=== PATIENT | male | born 1935 | race Caucasian/White ===

== ENCOUNTER 2024-10-01 23:36 | Inpatient (IN) | payer OTHER ==
[~2024-10-01] VITALS: Ht 170.2 cm; Wt 86.6 kg
[2024-10-02] VITALS (12 sets, daily range): BP systolic 103–117; BP diastolic 64–79; PULSE 98–114; RESP 16–22; TEMP 97.6–98.2; O2SAT 90–100
--- NOTE | 2024-10-02 00:12 | ED.PDOC ---
SOB-HPI HPI Comments 88 year old male brought in by EMS presents to the ED with a chief complaint of shortness of breath onset yesterday. Per EMS, patient was sitting on his bed, leaning forward, with O2 sat of 79-83% on his baseline 6L O2 with audible wheezes. Patient was given a breathing treatment, O2 improved to 94% on 6L O2, tachycardiac with HR of 114. Patient states he was experiencing cough with phlegm. PMHx HTN, HLD, pulmonary fibrosis. Denies chest pain, runny nose, congestion, dizziness, generalized weakness, headache, nausea, vomiting, diarrhea, fevers, chills. No other symptoms or modifying factors present at this time. Chief Complaint: Shortness of Breath Time Seen by MD: 23:47 Reviewed notes: Medications, Allergies Information Source: Patient, Emergency Med Personnel Mode of Arrival: EMS Severity: Moderate Timing: Hours Duration: Since onset Context: At Rest PE Risk Factors: None History of: None Prehospital treatment: Breathing Tx, Oxygen Modifying Factors: Nothing Associated Signs and Symptoms: Cough Radiation: No Radiation If cough with SOB: Productive Vital Signs Vital Signs Date Time Temp Pulse Resp B/P (MAP) Pulse Ox O2 Delivery O2 Flow Rate FiO2 10/02/24 06:50 119 17 108/72 (84) 97 10/02/24 02:55 97.9 97.9 10/02/24 00:55 Nasal Cannula* 4 36 Physical Exam General: Awake, alert and oriented. No acute distress. Skin: Skin in warm, dry and intact. Appropriate color for ethnicity. HEENT: The head is normocephalic and atraumatic. Conjunctivae are clear without exudates or hemorrhage. Sclera is non-icteric. EOM are intact. No signs of nystagmus. Eyelids are normal in appearance without swelling or lesions. Oral mucosa is pink and moist Neck: The neck is supple with normal range of motion. No JVD. Cardiac: Heart rate and rhythm are normal. No murmurs, gallops, or rubs are auscultated. Respiratory: No signs of respiratory distress. Tachypnea, bilateral rhonchi Abdominal: Abdomen is soft, non-tender without distention. Bowel sounds are present and normoactive in all four quadrants. Extremities: Upper and lower extremities are atraumatic in appearance without deformity or edema. Neurological: The patient is awake, alert and oriented to person, place, and ti me with normal speech. Speech is clear. There is no facial asymmetry. Psychiatric: Appropriate mood and affect. Good judgement and insight. No visual or auditory hallucinations. Review of Systems: REVIEW OF SYSTEMS: No fever, no chills, or fatigue HEENT: No sore throat, no earache, no congestion, no neck pain. Cardiac: Positive chest pain. No palpitations. Lungs: Positive shortness of breath, positive cough. GI: No nausea, no vomiting, no diarrhea, no constipation, no abdominal pain : No dysuria, frequency, or urgency. No hematuria. Musculoskeletal: No new joint pain , no joint swelling, no extremity edema. Skin: No rash, no itching. Neuro: No headache, no dizziness, no weakness Past Medical History PAST MEDICAL HISTORY: High Lipids, HTN Surgical History: Denies all surgeries Family History Family History: Reviewed,noncontributory to illness, No family hx of Cancer, No family hx of DM, No family hx of Heart ailyn, No family hx of HTN, No family hx ofKidney ailyn, No family hx of Liver ailyn, No family hx of Lung ailyn, No family hx of Stroke Social History Smoker: Non-Smoker Alcohol: Denies ETOH Use Drugs: Denies Drug Use Lives In: Home Was a procedure done? Was a procedure done?: No Differential Dx Differential Diagnosis: Bronchitis, Cardiogenic Shock, CHF, COPD, Hyponatremia, Myocardial infarction, Pneumonia, Pneumothorax, Pulmonary Embolism, Respiratory Distress, Peritonsillar Abscess, Peritonsillar Cellulitis, URI X-Ray, Labs, Meds, VS Vital Signs Date Time Temp Pulse Resp B/P (MAP) Pulse Ox O2 Delivery O2 Flow Rate FiO2 10/02/24 06:50 119 17 108/72 (84) 97 10/02/24 04:55 116 18 102/60 (74) 94 10/02/24 04:00 113 10/02/24 02:55 97.9 111 18 100/58 (72) 94 97.9 10/02/24 01:00 126 10/02/24 00:55 114 18 94 Nasal Cannula* 4 36 10/02/24 00:55 98.1 114 15 107/73 (84) 97 98.1 10/01/24 23:50 98.3 114 20 108/72 (84) 96 10/01/24 23:38 119 Lab Test 10/02/24 06:33 10/02/24 02:57 10/02/24 01:46 10/02/24 00:55 Range/Units POC Glucose 114 H 70-106 mg/dl Lactic Acid Level 1.7 0.4-2.0 mmol/L Troponin I High Sensitivity < 3 L </=54 ng/L Influenza Type A Antigen Negative Negative Influenza Type B Antigen Negative Negative SARS-CoV-2 Antigen (Rapid) Negative NEGATIVE Test 10/02/24 00:51 10/02/24 00:50 Range/Units Blood Gas Specimen Type Arterial Blood Gas Sample Site Right radial Blood Gas Patient Temperature 37.0 Arterial Blood Date Drawn [id number] Arterial Blood pH 7.441 7.350-7.450 Arterial Blood Partial Pressure CO2 36.2 35.0-48.0 mmHg Arterial Blood Partial Pressure O2 84.2 83.0-108.0 mmHg Arterial Blood HCO3 24.1 21.0-28.0 mmol/L Arterial Blood Oxygen Saturation 96.4 94.0-98.0 % Arterial Blood Base Excess 0.3 -2.0-3.0 mmol/L Arterial Blood Oxyhemoglobin 94.8 94.0-98.0 % Arterial Blood Carboxyhemoglobin 1.3 0.5-1.5 % Arterial Blood Methemoglobin 0.4 0.0-1.5 % Phu Test Modified Blood Gas Total Hemoglobin 13.30 L 13.5-17.5 g/dL Blood Gas Liter Flow 4.00 Blood Gas Modality Nasal cannula FiO2 % 36.0 White Blood Count 9.7 4.4-10.8 10^3/uL Red Blood Count 3.71 L 4.5-5.90 10^6/uL Hemoglobin 13.3 L 13.5-17.5 g/dL Hematocrit 39.6 L 41.0-53.0 % Mean Corpuscular Volume 106.7 H 80.0-100.0 fL Mean Corpuscular Hemoglobin 35.8 H 28.0-32.0 pg Mean Corpuscular Hemoglobin Concent 33.6 32.0-36.0 g/dL Red Cell Distribution Width 13.9 11.8-14.3 % Platelet Count 195 140-450 10^3/uL Mean Platelet Volume 6.9 6.9-10.8 fL Neutrophils (%) (Auto) 83.0 H 37.0-80.0 % Lymphocytes (%) (Auto) 8.5 L 10.0-50.0 % Monocytes (%) (Auto) 7.6 0.0-12.0 % Eosinophils (%) (Auto) 0.8 0.0-7.0 % Basophils (%) (Auto) 0.1 0.0-2.0 % Neutrophils # (Auto) 8.1 1.6-8.6 10 ^3/uL Lymphocytes # (Auto) 0.8 0.4-5.4 10 ^3/uL Monocytes # (Auto) 0.7 0-1.3 10 ^3/uL Eosinophils # (Auto) 0.1 0-0.8 10 ^3/uL Basophils # (Auto) 0 0-0.2 10 ^3/uL Nucleated Red Blood Cells 0.1 % D-Dimer, Quantitative 8.75 H 0.0-0.49 mg/L FEU Sodium Level 136 136-145 mmol/L Potassium Level 4.3 3.5-5.1 mmol/L Chloride Level 101 98-107 mmol/L Carbon Dioxide Level 27 20-31 mmol/L Anion Gap 8 5-15 Blood Urea Nitrogen 8 L 9-23 mg/dL Creatinine 0.71 0.700-1.30 mg/dL Glomerular Filtration Rate Calc 89 >90 mL/min BUN/Creatinine Ratio 11.3 10.0-20.0 Serum Glucose 141 H 74-106 mg/dL Lactic Acid Level 4.1 *H 0.4-2.0 mmol/L Calcium Level 8.2 L 8.7-10.4 mg/dL Total Bilirubin 0.8 0.2-1.0 mg/dL Aspartate Amino Transferase (AST) 47 H 13-40 U/L Alanine Aminotransferase (ALT) 28 7-40 U/L Alkaline Phosphatase 190 H 46-116 U/L Troponin I High Sensitivity < 3 L </=54 ng/L B-Type Natriuretic Peptide 73.52 0-100 pg/mL Total Protein 7.0 5.7-8.2 g/dL Albumin 2.4 L 3.2-4.8 g/dL Current Medications Medications (Trade) Dose Ordered Sig/Lizz Route Start Time Stop Time Status Last Admin Sodium Chloride 1,000 ml @ 1,000 mls/hr Q1H ONCE IV 10/02/24 03:00 10/02/24 03:59 DC 10/02/24 03:00 Sodium Chloride 1,000 ml @ 130 mls/hr Q7H42M ONCE IV 10/02/24 03:00 10/02/24 10:41 10/02/24 03:00 Sodium Chloride 1,000 ml @ 1,000 mls/hr Q1H ONCE IV 10/02/24 03:00 10/02/24 03:59 DC 10/02/24 03:00 Ceftriaxone Sodium 50 ml @ 100 mls/hr ONCE ONCE IV 10/02/24 03:00 10/02/24 03:29 DC 10/02/24 03:00 Azithromycin 250 ml @ 125 mls/hr ONCE ONCE IV 10/02/24 03:00 10/02/24 04:59 DC 10/02/24 03:00 [place] [id number] Ph: [phone] DIAGNOSTIC IMAGING Diagnostic Imaging Report : [id number] Signed PATIENT: MAHNAZ JIMENEZ ACCT: [id number] UNIT: [id number] : 1935 LOC: ER ROOM / BED: / AGE / SEX: 88 / M ADM STATUS: REG ER SERVICE ORDERING PHYSICIAN: PACO AGUIRRE MD PROCEDURE(s): CXR1 - CHEST XRAY 1 VIEW REASON: Shortness of breath ORDER NUMBER(s): [id number], ACCESSION NUMBER(s): [id number] CHEST RADIOGRAPH Indication: Shortness of breath Technique: Single frontal view of the chest was obtained Comparison: None Findings/impression: Low lung volumes with bronchovascular crowding. Difficult to exclude superimposed infection. No pneumothorax. No pleural effusions ATED BY: JOSUÉ JUSTIN DO DICTATED DATE/TIME: 10/02/2499 SIGNED BY: JOSUÉ JUSTIN DO SIGNED DATE/TIME: 10/02/2499 CC: X-Ray, Labs, Meds, VS Comment Addendum by Dr. Bangura: CTA read: 1. No pulmonary embolism is identified. Some of the distal pulmonary arteries cannot be evaluated due to suboptimal opacification. 2. The ascending thoracic aorta is ectatic measuring 4.5 cm in maximum d iameter. 3. 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 4. COPD with scattered areas of ground-glass attenuation, partial consolidation and bilateral pleural effusions. Superimposed pneumonia can not be excluded. Dx: aortic anerysm, COPD, bilateral pleural effusions, SOB, Patient cleared by [facility] for admission [id number] Time of 1ST Reevaluation: 00:17 Reevaluation 1ST: Unchanged Patient Education/Counseling: Diagnosis, Treatment, Prognosis Family Education/Counseling: No Family Present Departure 1 Departure Time of Disposition: 02:57 Impression: Primary Impression: Suspected sepsis Additional Impressions: Aortic aneurysm Hypoxia Dyspnea Disposition: 09 ADMITTED INPATIENT Admit to: [facility] Condition: Stable Comments 88-year-old male who presents to the emergency department with shortness of breath. Suspected sepsis given leukocytosis, tachycardia, elevated lactic acid. Antibiotics and IV fluids initiated. D-dimer was also elevated, CT angiogram pending. Patient admitted for further treatment, evaluation and monitoring. Discussed with Dr. Valentin at [facility] [facility] we will transfer to [facility]. Extensive evaluation was performed in attempt to identify or rule out: (See differential diagnosis section) The following tests were ordered, and results were reviewed by me and discussed with the patient and family at bedside: (See diagnostic results section) The following test were independently interpreted by me: EKG I reviewed and agreed with the following test results read by other providers: Chest x-ray I reviewed the following notes from the pt's past medical encounters: N/A Additional information was gathered from interviewing the following independent historians: Patient's daughter at bedside Discussion of management or test interpretation with external physician/other qualified health post acute care registered nurse: N/A Addressed an acute or chronic illness that poses a threat to life or bodily function: Sepsis, pneumonia, sinus tachycardia Decision regarding hospitalization or escalation of hospital level of care: Risk and benefits of admission for further treatment of patient's condition was considered. Due to patient's current clinical condition, high risk of decline and poor outcome if discharged and need for further inpatient management and monitoring, patient will be admitted to the hospital. Drug therapy requiring intensive monitoring for toxicity: N/A Parenteral controlled substances: N/A Decision regarding elective major surgery with identified patient or procedure risk factors: N/A Decision regarding emergency major surgery: N/A Decision not to resuscitate or to de-escalate care because of poor prognosis: N/A Diagnosis or treatment significantly limited by social determinants of health: N/A Critical Care Note Critical Care Time?: Yes (1 hr-critical care time only) Stability Stability form required: No Heart Score Heart Score: Heart Score Response (Comments) Value History N/A 0 EKG N/A 0 Age N/A 0 Risk Factors N/A 0 Troponin N/A 0 Total 0 I personally scribed for PACO AGUIRRE MD ([email or web address]) on 10/02/24 at 00:12. Electronically submitted by Marlene Bess ([email or web address]). I personally scribed for PACO AGUIRRE MD ([email or web address]) on 10/02/24 at 01:18. Electronically submitted by Marlene Bess ([email or web address]). PACO AGUIRRE MD Oct 02, 2024 00:12 LARRY BANGURA MD Oct 02, 2024 06:42
--- NOTE | 2024-10-02 01:03 | DVH ---
CHEST RADIOGRAPH Indication: Shortness of breath Technique: Single frontal view of the chest was obtained Comparison: None Findings/impression: Low lung volumes with bronchovascular crowding. Difficult to exclude superimpose d infection. No pneumothorax. No pleural effusions
[2024-10-02 01:09] LABS: Base Excess 0.3 mmol/L (-2.0-3.0)
[2024-10-02 01:10] LABS: Basophils # (auto) 0 10 ^3/uL (0-0.2); Basophils % (auto) 0.1 % (0.0-2.0); Eosinophils # (auto) 0.1 10 ^3/uL (0-0.8); Eosinophils % (auto) 0.8 % (0.0-7.0); Hematocrit 39.6 % (41.0-53.0); Hemoglobin 13.3 g/dL (13.5-17.5); Lymphocytes # (auto) 0.8 10 ^3/uL (0.4-5.4); Lymphocytes % (auto) 8.5 % (10.0-50.0); Mean Corpuscular Hemoglobin 35.8 pg (28.0-32.0); Mean Corpuscular Hgb Conc. 33.6 g/dL (32.0-36.0); Mean Corpuscular Volume 106.7 fL (80.0-100.0); Monocytes # (auto) 0.7 10 ^3/uL (0-1.3); Monocytes % (auto) 7.6 % (0.0-12.0); Neutrophils # (auto) 8.1 10 ^3/uL (1.6-8.6); Nucleated Red Blood Cells % 0.1 %; Platelet Count (auto) 195 10^3/uL (140-450); Red Blood Cells 3.71 10^6/uL (4.5-5.90); Red Cell Distribution Width 13.9 % (11.8-14.3); White Blood Cell 9.7 10^3/uL (4.4-10.8)
[2024-10-02 01:42] LABS: Lactic Acid w/Reflex 4.1 mmol/L (0.4-2.0)
[2024-10-02 01:44] LABS: Alanine Aminotransferase 28 U/L (7-40); Albumin 2.4 g/dL (3.2-4.8); Alkaline Phosphatase 190 U/L (46-116); Anion Gap 8 (5-15); Aspartate Aminotransferase 47 U/L (13-40); BUN/Creatinine Ratio 11.3 (10.0-20.0); Bilirubin, Total 0.8 mg/dL (0.2-1.0); Blood Urea Nitrogen 8 mg/dL (9-23); Calcium 8.2 mg/dL (8.7-10.4); Carbon Dioxide 27 mmol/L (20-31); Chloride 101 mmol/L (98-107); Glucose 141 mg/dL (74-106); Potassium 4.3 mmol/L (3.5-5.1); Sodium 136 mmol/L (136-145)
[2024-10-02 02:00] LABS: COVID19 ANTIGEN SOFIA FIA NEGATIVE (NEGATIVE)
[2024-10-02] MEDS: IOHEXOL 350 MG/ML 100ML IJ ONE ×2 (02:13→04:39)
[2024-10-02 02:20] LABS: Rapid Influenza A Negative (Negative); Rapid Influenza B Negative (Negative)
[2024-10-02] MEDS: AZITHROMYCIN 500MG/ 250ML 250 ML IV ONE (03:00)
[2024-10-02] MEDS: SODIUM CHLORIDE 0.9% 1,000 ML IV ONE ×3 (03:00)
[2024-10-02] MEDS: cefTRIAXone 1GM/50ML D5W 50 ML IV ONE (03:00)
--- NOTE | 2024-10-02 06:17 | DVH ---
EXAM: CT Angiography Chest With Intravenous Contrast CLINICAL INDICATION: Chest pain, shortness of breath, cough, elevated D-dimer, l TECHNIQUE: Axial computed tomographic angiography images of the chest with intravenous contrast. [facility] CT exam was performed using one or more of the following dose reduction techniques: automated exp osure control, adjustment of the mA and/or kV according to patient size, and/or use of iterative lazaro nstruction technique. MIP reconstructed images were created and reviewed. CONTRAST: COMPARISON: None FINDINGS: LIMITATIONS: Suboptimal opacification of the pulmonary arteries. PULMONARY ARTERIES: No pulmonary embolism is identified. Some of the distal pulmonary arteries can not be evaluated due to suboptimal opacification. AORTA: The ascending thoracic aorta is ectatic measuring 4.5 cm in maximum diameter. No thoracic a ortic aneurysm. LUNGS AND PLEURAL SPACES: COPD with scattered areas of ground-glass attenuation, partial consolidat ion and bilateral pleural effusions. Superimposed pneumonia can not be excluded. HEART: Unremarkable. No cardiomegaly. No significant pericardial effusion. No evidence of RV dys function. BONES/JOINTS: No acute fracture. No dislocation. SOFT TISSUES: Unremarkable. LYMPH NODES: Unremarkable. No enlarged lymph nodes. 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 OTHER FINDINGS: . IMPRESSION: 1. No pulmonary embolism is identified. Some of the distal pulmonary arteries cannot be evaluated d ue to suboptimal opacification. 2. 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 3. 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 4. COPD with scattered areas of ground-glass attenuation, partial consolidation and bilateral pleura l effusions. Superimposed pneumonia can not be excluded.
[2024-10-02 09:09] LABS: Urine Bacteria None Seen /hpf (None Seen)
[2024-10-02 09:14] LABS: Urine Blood Negative /uL (Negative); Urine Clarity Clear (Clear); Urine Color Light-Yellow (Yellow); Urine Protein, UAD Negative (Negative); Urine Specific Gravity 1.025 (1.001-1.035); Urine Squamous Epithelial Cell None Seen /hpf (<5); Urine Urobilinogen 2 mg/dL (Negative); Urine WBC 1 /HPF (0-3); Urine pH 6.5 (5.0-9.0)
[2024-10-02] MEDS ORDERED: ONDANSETRON HCL 4 MG/2 ML VIAL IV PRN (12:00)
[2024-10-02] MEDS ORDERED: HYDROcodone-ACET 5/325MG TAB PO PRN (12:00)
[2024-10-02] MEDS ORDERED: IPRATROPIUM BROM 0.5 MG/2.5ML INH SOL NEB PRN (12:00)
[2024-10-02] MEDS ORDERED: ACETAMINOPHEN 325 MG TAB PO PRN (12:00)
[2024-10-02] MEDS ORDERED: ALBUTEROL SULF 2.5 MG/0.5ML(0.5%) NEB SOLN NEB PRN (12:00)
[2024-10-02] MEDS ORDERED: DEXTROSE (50%) 50ML SYRG IV PRN (12:00)
[2024-10-02] MEDS ORDERED: TAMS0.4C39 (12:40)
[2024-10-02] MEDS ORDERED: PIRF801T (12:40)
[2024-10-02] MEDS ORDERED: ATOR10TA52 (12:40)
[2024-10-02] MEDS ORDERED: BISO5TAB44 (12:40)
[2024-10-02] MEDS ORDERED: ONDA-188 (12:40)
[2024-10-02] MEDS ORDERED: ALEN70TA74 (12:40)
[2024-10-02] MEDS ORDERED: TERB250T86 (12:40)
--- NOTE | 2024-10-02 12:57 | DVHHP2 ---
History of Present Illness Reason for Visit: SOB History of Present Illness Renzo Roy is an 88-year-old male with past medical history of COPD, ex-tobacco use, pulmonary fibrosis, hypertension, ILD, atherosclerosis, colon polyp, pulmonary nodules, vitamin-D deficiency, thyroid goiter, cataracts, aortic aneurysm, hemochromatosis, hyperlipidemia, chronic respiratory failure, osteoarthritis, liver cirrhosis, back surgery, right leg surgery, and liver bio psy who presents to the ED with shortness of breath for the last several days. Patient is oxygen dependent on 4.5 to 5 L nasal cannula continuously at home per daughter Chiqui at bedside. Patient's daughter also states that he was supposed to have an oxy walk study done at [facility] but because the depleted oxygen at home she brought him in for evaluation. Patient denies any chest pain, recent illnesses, recent trauma or injury, fever, chills, lightheadedness, weakness, dizziness, abdominal pain, nausea, vomiting, and diarrhea. Patient's daughter Chiqui also states that he has an aortic aneurysm and is being managed by his primary at [place], she states that there is no surgical intervention management at this time. She also reports that he had a paracentesis but unsure when the last one was done. Cardiovascular: HTN, hyperipidemia Pulmonary: COPD Hepatobiliary: Cirrhosis Past Medical History Pulmonary fibrosis Interstitial lung disease Thyroid goiter Vitamin-D deficiency Pulmonary nodules Atherosclerosis Colon polyp Cataracts Aortic aneurysm Hemochromatosis Chronic respiratory failure Past Surgical History: Other Past Surgical History Paracentesis, back surgery, right leg surgery, and liver biopsy Family History: Cancer, CVA, Other (Dad with lung cancer and CVA) Smoke: Quit ALCOHOL: occassional Drugs: None Lives: with Family Domestic Violence: Neg Review of Systems Respiratory: Shortness of breath Allergies: Coded Allergies: NO KNOWN ALLERGIES (Unverified , 10/02/24) Medications Current Medications Medications Dose Ordered Sig/Lizz Route Start Time Stop Time Status Last Admin Dose Admin Ceftriaxone Sodium 50 ml @ 100 mls/hr DAILY@09 IV 10/03/24 09:00 UNV Azithromycin 250 ml @ 125 mls/hr DAILY IV 10/03/24 10:00 UNV Acetaminophen/ Hydrocodone Bitart 1 tab Q4HP PRN PO 10/02/24 12:00 UNV Ondansetron HCl 4 mg Q4HP PRN IV 10/02/24 12:00 UNV Acetaminophen 650 mg Q6HP PRN PO 10/02/24 12:00 UNV Diagnostic Test (Pha) 1 strip ACHS 10/02/24 17:00 UNV Insulin Human Regular ACHS SC 10/02/24 17:00 UNV Dextrose 50 ml UD PRN IV 10/02/24 12:00 UNV Albuterol 2.5 mg Q4HWA NEB 10/02/24 14:00 UNV Albuterol 2.5 mg Q2HPRN PRN NEB 10/02/24 12:00 UNV Ipratropium [place] 0.5 mg Q4HWA NEB 10/02/24 14:00 UNV Ipratropium [place] 0.5 mg Q2HPRN PRN NEB 10/02/24 12:00 UNV Methylprednisolone Sodium Succinate 40 mg Q8HR IV 10/02/24 14:00 UNV Famotidine 20 mg DAILY IV 10/03/24 10:00 UNV Exam Vital Signs Vital Signs Date Time Temp Pulse Resp B/P (MAP) Pulse Ox O2 Delivery O2 Flow Rate FiO2 10/02/24 11:00 97.9 104 18 112/70 (84) 99 97.9 10/02/24 00:55 Nasal Cannula* 4 36 General Appearance: Alert, Oriented X3, Cooperative, mild distress HEENT: Atraumatic, PERRLA, EOMI, Mucous membr. moist/pink Respiratory: Normal air movement Cardiovascular: Normal S1, Normal S2, No murmurs Abdominal: Soft Extremities: No cyanosis, Normal pulses Neuro: Normal speech, Normal tone, Sensation intact Psych/Mental Status: Mental status NL, Mood NL Labs/Xrays Labs Test 10/02/24 09:00 10/02/24 06:33 10/02/24 02:57 10/02/24 01:46 Range/Units Urine Color Light-yellow Yellow Urine Clarity Clear Clear Urine pH 6.5 5.0-9.0 Urine Specific [place] 1.025 1.001-1.035 Urine Protein Negative Negative Urine Ketones Negative Negative Urine Blood Negative Negative /uL Urine Nitrite Negative Negative Urine Bilirubin Negative Negative Urine Urobilinogen 2 H Negative mg/dL Urine Leukocyte Esterase Negative Negative /uL Urine RBC 1 0 - 3 /hpf Urine Microscopic WBC 1 0-3 /HPF Urine Squamous Epithelial Cells None seen <5 /hpf Urine Bacteria None seen None Seen /hpf Urine Glucose Normal Normal mg/dL POC Glucose 114 H 70-106 mg/dl Lactic Acid Level 1.7 0.4-2.0 mmol/L Troponin I High Sensitivity < 3 L </=54 ng/L Test 10/02/24 00:55 10/02/24 00:51 10/02/24 00:50 Range/Units Influenza Type A Antigen Negative Negative Influenza Type B Antigen Negative Negative SARS-CoV-2 Antigen (Rapid) Negative NEGATIVE Blood Gas Specimen Type Arterial Blood Gas Sample Site Right radial Blood Gas Patient Temperature 37.0 Arterial Blood Date Drawn [id number] Arterial Blood pH 7.441 7.350-7.450 Arterial Blood Partial Pressure CO2 36.2 35.0-48.0 mmHg Arterial Blood Partial Pressure O2 84.2 83.0-108.0 mmHg Arterial Blood HCO3 24.1 21.0-28.0 mmol/L Arterial Blood Oxygen Saturation 96.4 94.0-98.0 % Arterial Blood Base Excess 0.3 -2.0-3.0 mmol/L Arterial Blood Oxyhemoglobin 94.8 94.0-98.0 % Arterial Blood Carboxyhemoglobin 1.3 0.5-1.5 % Arterial Blood Methemoglobin 0.4 0.0-1.5 % Phu Test Modified Blood Gas Total Hemoglobin 13.30 L 13.5-17.5 g/dL Blood Gas Liter Flow 4.00 Blood Gas Modality Nasal cannula FiO2 % 36.0 White Blood Count 9.7 4.4-10.8 10^3/uL Red Blood Count 3.71 L 4.5-5.90 10^6/uL Hemoglobin 13.3 L 13.5-17.5 g/dL Hematocrit 39.6 L 41.0-53.0 % Mean Corpuscular Volume 106.7 H 80.0-100.0 fL Mean Corpuscular Hemoglobin 35.8 H 28.0-32.0 pg Mean Corpuscular Hemoglobin Concent 33.6 32.0-36.0 g/dL Red Cell Distribution Width 13.9 11.8-14.3 % Platelet Count 195 140-450 10^3/uL Mean Platelet Volume 6.9 6.9-10.8 fL Neutrophils (%) (Auto) 83.0 H 37.0-80.0 % Lymphocytes (%) (Auto) 8.5 L 10.0-50.0 % Monocytes (%) (Auto) 7.6 0.0-12.0 % Eosinophils (%) (Auto) 0.8 0.0-7.0 % Basophils (%) (Auto) 0.1 0.0-2.0 % Neutrophils # (Auto) 8.1 1.6-8.6 10 ^3/uL Lymphocytes # (Auto) 0.8 0.4-5.4 10 ^3/uL Monocytes # (Auto) 0.7 0-1.3 10 ^3/uL Eosinophils # (Auto) 0.1 0-0.8 10 ^3/uL Basophils # (Auto) 0 0-0.2 10 ^3/uL Nucleated Red Blood Cells 0.1 % D-Dimer, Quantitative 8.75 H 0.0-0.49 mg/L FEU Sodium Level 136 136-145 mmol/L Potassium Level 4.3 3.5-5.1 mmol/L Chloride Level 101 98-107 mmol/L Carbon Dioxide Level 27 20-31 mmol/L Anion Gap 8 5-15 Blood Urea Nitrogen 8 L 9-23 mg/dL Creatinine 0.71 0.700-1.30 mg/dL Glomerular Filtration Rate Calc 89 >90 mL/min BUN/Creatinine Ratio 11.3 10.0-20.0 Serum Glucose 141 H 74-106 mg/dL Calcium Level 8.2 L 8.7-10.4 mg/dL Total Bilirubin 0.8 0.2-1.0 mg/dL Aspartate Amino Transferase (AST) 47 H 13-40 U/L Alanine Aminotransferase (ALT) 28 7-40 U/L Alkaline Phosphatase 190 H 46-116 U/L B-Type Natriuretic Peptide 73.52 0-100 pg/mL Total Protein 7.0 5.7-8.2 g/dL Albumin 2.4 L 3.2-4.8 g/dL EXAM: CT Angiography Chest With Intravenous Contrast CLINICAL INDICATION: Chest pain, shortness of breath, cough, elevated D-dimer, l TECHNIQUE: Axial computed tomographic angiography images of the chest with intravenous contrast. This CT exam was performed using one or more of the following dose reduction techniques: automated exposure control, adjustment of the mA and/or kV according to patient size, and/or use of iterative reconstruction technique. MIP reconstructed images were created and reviewed. CONTRAST: COMPARISON: None FINDINGS: LIMITATIONS: Suboptimal opacification of the pulmonary arteries. PULMONARY ARTERIES: No pulmonary embolism is identified. Some of the distal pulmonary arteries cannot be evaluated due to suboptimal opacification. AORTA: The ascending thoracic aorta is ectatic measuring 4.5 cm in maximum diameter. No thoracic aortic aneurysm. LUNGS AND PLEURAL SPACES: COPD with scattered areas of ground-glass attenuation, partial consolidation and bilateral pleural effusions. Superimposed pneumonia can not be excluded. HEART: Unremarkable. No cardiomegaly. No significant pericardial effusion. No evidence of RV dysfunction. BONES/JOINTS: No acute fracture. No dislocation. SOFT TISSUES: Unremarkable. LYMPH NODES: Unremarkable. No enlarged lymph nodes. 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 OTHER FINDINGS: . IMPRESSION: 1. No pulmonary embolism is identified. Some of the distal pulmonary arteries cannot be evaluated due to suboptimal opacification. 2. 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 3. 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 4. COPD with scattered areas of ground-glass attenuation, partial consolidation and bilateral pleural effusions. Superimposed pneumonia can not be excluded. CHEST RADIOGRAPH Indication: Shortness of breath Technique: Single frontal view of the chest was obtained Comparison: None Findings/impression: Low lung volumes with bronchovascular crowding. Difficult to exclude superimposed infection. No pneumothorax. No pleural effusions Assessment/Plan Assessment/Plan Assessment Acute on chronic COPD exacerbation with superimposed pneumonia Elevated D-dimer PE ruled out Lactic acidosis probable sepsis Hyperglycemia Aortic aneurysm Tachycardia probable dehydration Ascites with probable cirrhosis ETOH use Ex tobacco use History of thyroid goiter History of vitamin-D deficiency History of pulmonary nodules History of hypertension History of interstitial lung disease History of atherosclerosis History of colon polyp History of cataracts History of hemochromatosis History of hyperlipidemia History of chronic respiratory failure History of osteoarthritis History of liver cirrhosis with paracentesis History of liver biopsy History of back surgery History of right leg surgery Plan Admit to [facility] IV antibiotics-ceftriaxone + azithromycin Hemoglobin A1c ISS and Accu-Cheks COVID negative Flu negative ABG NS 3 L given ED Blood cultures UA Procalcitonin Troponin D-dimer Chest x-ray BNP EKG Home medications reconciled Supportive oxygen PPIs IV fluids IV steroids DVT prophylaxis Lovenox PUD prophylaxis on Counseled patient on cessation of alcohol use Counseled patient on continuing cessation of tobacco use Discussed plan of care with patient, patient's daughter and nurse Plan discussed with: Patient, Daughter My Orders Orders - NICOLE WAHL Procedure Category Date Status Time Ceftriaxone 1gm/50ml PHA 10/03/24 Logged D5w (Rocephin) 09:00 Azithromycin 500mg/ PHA 10/03/24 Logged 250ml (Zithromax 50 10:00 Admit ADMIT 10/02/24 Transmitted 11:59 Allergies CISCO 10/02/24 In Process 11:59 Code Status CODE 10/02/24 Transmitted 11:59 Hydrocodone-Acet PHA 10/02/24 Logged 5/325mg Tab ([place] 12:00 Ondansetron Hcl PHA 10/02/24 Logged (Zofran) 12:00 Complete Blood Count LAB 10/03/24 Verified 04:00 Comprehensive LAB 10/03/24 Verified Metabolic Panel 04:00 Cardiac DIET 10/02/24 Transmitted Diet-2gna,Lofat,Lochol Lunch Acetaminophen Tablet PHA 10/02/24 Logged (Tylenol Tablet) 12:00 Glucose Blood PHA 10/02/24 Logged (Accu-Chek Comfort 17:00 Insulin R (Human) PHA 10/02/24 Logged (Insulin R) 17:00 Dextrose 50% Syringe PHA 10/02/24 Logged 12:00 Hemoglobin A1c LAB 10/02/24 Logged 11:59 Albuterol Medneb PHA 10/02/24 Logged (Ventolin Medneb) 14:00 Albuterol Medneb PHA 10/02/24 Logged (Ventolin Medneb) 12:00 Ipratropium Medneb PHA 10/02/24 Logged (Atrovent Medneb) 14:00 Ipratropium Medneb PHA 10/02/24 Logged (Atrovent Medneb) 12:00 Methylprednisolone PHA 10/02/24 Logged Sod Succ (Solu Medrol 14:00 Famotidine Injection PHA 10/03/24 Logged (Pepcid Injection) 10:00 Date of Service: Oct 02, 2024 Billing Provider: NICOLE WAHL Common Visit Codes: 17216-GVBGRIM INP/OBS CARE (HIGH) NICOLE WAHL Oct 02, 2024 12:57
[2024-10-02] MEDS: SODIUM CHLORIDE 0.9% 1,000 ML IV SCH (13:00)
--- NOTE | 2024-10-02 13:35 | ECG ---
[facility] Test Date: 2024-10-01 Test Time: 23:38:16 Pat Name: MAHNAZ JIMENEZ Department: ER Room: 0292T Gender: M [employer]: ER : [id number] Requested By: LARRY ANAND Order Number: [id number] Reading MD: Ajith Shukla Measurements Intervals [place] Rate: 119 P: 17 KS: 141 QRS: -7 QRSD: 101 T: 26 QT: 330 QTc: 465 Interpretive Statements Sinus tachycardia Atrial premature complexes in couplets Left ventricular hypertrophy Inferior infarct, old Baseline wander in lead(s) V6 Electronically Signed On 10-04-2024 19:05:13 PDT by Ajith Shukla Please click the below link to view image of tracing.
[2024-10-02] MEDS: ALBUTEROL SULF 2.5 MG/0.5ML(0.5%) NEB SOLN NEB SCH (13:50)
[2024-10-02] MEDS: IPRATROPIUM BROM 0.5 MG/2.5ML INH SOL NEB SCH (13:50)
[2024-10-02] MEDS ORDERED: methylPREDNISolone SOD SUCC 40 MG/ML VL IV SCH (14:00)
[2024-10-02] MEDS: ACCU-CHEK COMFORT CURVE STRIP VI SCH (17:00)
[2024-10-02] MEDS: InsuLIN REG 1unit/0.01ml Soln (100units/ml) SC SCH (17:00)
[2024-10-02] MEDS: BUDESONIDE (INHALATION) 0.5 MG/2 ML NEB NEB SCH (19:01)
[2024-10-02] MEDS: methylPREDNISolone SOD SUCC 125 MG/2 ML VL IV SCH (19:49)
[2024-10-03] VITALS (18 sets, daily range): BP systolic 95–123; BP diastolic 51–70; PULSE 101–117; RESP 16–24; TEMP 97.5–98.1; O2SAT 91–100
[2024-10-03 06:25] LABS: Basophils # (auto) 0 10 ^3/uL (0-0.2); Eosinophils # (auto) 0 10 ^3/uL (0-0.8); Hemoglobin 11.7 g/dL (13.5-17.5); Lymphocytes # (auto) 0.6 10 ^3/uL (0.4-5.4); Monocytes # (auto) 0.1 10 ^3/uL (0-1.3)
[2024-10-03 06:28] LABS: Hematocrit 33.8 % (41.0-53.0); Lymphocytes % (auto) 9.1 % (10.0-50.0); Mean Corpuscular Hemoglobin 36.2 pg (28.0-32.0); Mean Corpuscular Hgb Conc. 34.5 g/dL (32.0-36.0); Mean Corpuscular Volume 104.7 fL (80.0-100.0); Monocytes % (auto) 1.7 % (0.0-12.0); Neutrophils % (auto) 89.2 % (37.0-80.0); Nucleated Red Blood Cells % 0.1 %; Platelet Count (auto) 161 10^3/uL (140-450); Red Blood Cells 3.22 10^6/uL (4.5-5.90); Red Cell Distribution Width 13.7 % (11.8-14.3); White Blood Cell 6.7 10^3/uL (4.4-10.8)
[2024-10-03 06:33] LABS: Alanine Aminotransferase 22 U/L (7-40); Anion Gap 5 (5-15); Aspartate Aminotransferase 35 U/L (13-40); BUN/Creatinine Ratio 15.2 (10.0-20.0); Carbon Dioxide 26 mmol/L (20-31); Chloride 105 mmol/L (98-107); Potassium 4.2 mmol/L (3.5-5.1); Sodium 136 mmol/L (136-145); Total Protein 6.1 g/dL (5.7-8.2)
[2024-10-03 06:34] LABS: Albumin 2.1 g/dL (3.2-4.8); Alkaline Phosphatase 138 U/L (46-116); Bilirubin, Total 0.9 mg/dL (0.2-1.0); Blood Urea Nitrogen 7 mg/dL (9-23); Calcium 7.8 mg/dL (8.7-10.4); Glucose 135 mg/dL (74-106)
[2024-10-03] MEDS: cefTRIAXone 1GM/50ML D5W 50 ML IV SCH (08:14)
[2024-10-03] MEDS: AZITHROMYCIN 500MG/ 250ML 250 ML IV SCH (11:06)
[2024-10-03] MEDS: FAMOTIDINE (10MG/ML) 2ML VL IV SCH (11:06)
--- NOTE | 2024-10-03 16:35 | DVHPN2 ---
Assessment/Plan Assessment/Plan Progress note 88 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 Patient was last seen on 08/16 by pulm in [place]. Since may 2024 has lazaro ET. current functional status SOB at rest. Compliance with treatment until 2 weeks ago stopping inhalers. Physical exam Elderly male alert oriented x3 hard of hearing coarse rhonchi s1 s2 rrr systolic murmur abdomen soft nontender trace LE edema labs imaging reviewed assessment and plan COPD group E on home O2 with exacerbation acute on chronic hypoxic RF Pulmonary fibrosis hemocrhomatoisis cirrhosis PNA aspiration gn vs gp sepsis 2/2 above maintain spo2 >92 ceft and azithro albuterol, budesonide, ipatropium nebs stress dose steroid pulm consult monitor LFT diet cardiac dvt ppx lovenox code status DNR DNI goals of care comfort with acute curative intent, no invasive procedures, no HD medical decision maker daughter unstable for transfer critical care time 45 mintues goals of care discusseion 35 minutes Plan discussed with: Patient, Daughter My Orders Orders - KAYODE JONES MD Procedure Category Date Status Time Code Status CODE 10/03/24 Transmitted 15:09 *Consult CONS 10/03/24 Transmitted / 15:11 Date of Service: Oct 03, 2024 Billing Provider: KAYODE JONES MD Common Visit Codes: 35318-[id number] CARE 30-74 MIN Secondary Visit Codes: 11545-IICAXQIP CARE PLAN 30 MINUTES KAYODE JONES MD Oct 03, 2024 16:35
--- NOTE | 2024-10-03 19:28 | DVH ---
EXAM: US ABDOMEN LIMITED Clinical History: eval if ascites amenable for paracentesis Comparison: None Technique: Grayscale ultrasound of the abdomen performed with color Doppler and spectral/pulsed wave form as indicated. Findings/Impression: Mild volume ascites in the right upper and bilateral lower quadrants. Mild to moderate volume ascites in the right lower quadrant. Trace left and small right pleural effusions.
[2024-10-03] MEDS: methylPREDNISolone SOD SUCC 125 MG/2 ML VL IV SCH (22:05)
--- NOTE | 2024-10-03 22:26 | DVHINCON2 ---
Date of service: Oct 03, 2024 Referring Physician Jessie Powers NP Reason for Consultation Acute hypoxic respiratory failure, pulmonary fibrosis, bilateral pleural effusions, emphysema and ascites. History of Present Illness An 88-year-old man with past medical history including COPD, pulmonary f ibrosis, ILD, pulmonary nodules, chronic respiratory failure, hypertension, goiter, hyperlipidemia, aortic aneurysm (being managed by PCP), and liver cirrhosis who presented to ED on 10/02/24 with c/o shortness of breath ongoing for the past several days. Per daughter, pt is oxygen dependent on 4.5 to 5 L nasal cannula continuously at home. Patient was scheduled for oxygen walk test at [facility], but because of the depleted oxygen at home she brought him in for evaluation. Patient denied chest pain, recent illnesses, recent trauma or injury, fever, chills, dizziness, or GI symptoms. Daughter is unsure when last paracentesis was done. Patient was admitted for further care and pulmonary consultation is requested for evaluation and management due to the above findings. Review of Systems: 14-point review of systems negative unless otherwise noted above. Past Medical History: COPD, pulmonary fibrosis, ILD, pulmonary nodules, thyroid goiter, hyperlipidemia, chronic respiratory failure, liver cirrhosis, vitamin D deficiency, atherosclerosis, colon polyp, cataracts, aortic aneurysm, hemochr omatosis, osteoarthritis. Past Surgical History: Paracentesis, back surgery, right leg surgery, and liver biopsy Medications: Reviewed. Allergies: No known drug allergies. Family History: Dad with lung cancer and CVA Social History: Former smoker. Occasional alcohol use. No illicit drug use. Family History: FH: lung cancer G8 FATHER Allergies: Coded Allergies: NO KNOWN ALLERGIES (Unverified , 10/02/24) Home Meds Reported Medications Ondansetron HCl (Ondansetron Hydrochloride) 4 Mg Tab, 1 10/02/24 Bisoprolol Fumarate (Bisoprolol Fumarate) 5 Mg Tab 10/02/24 Pirfenidone Base (Pirfenidone) 801 Mg Tab 10/02/24 Terbinafine HCl (Terbinafine Hydrochloride) 250 Mg Tab, 1 DAILY 10/02/24 Alendronate Sodium (Alendronate Sodium) 70 Mg Tab, 1 10/02/24 Atorvastatin Calcium (ATORVASTATIN CALCIUM) 10 Mg Tab, 1 DAILY 10/02/24 Tamsulosin Hcl (Tamsulosin Hcl) 0.4 Mg Cap 10/02/24 Current Medications Current Medications Medications (Trade) Dose Ordered Sig/Lizz Route PRN Reason Start Time Stop Time Status Last Admin Ceftriaxone Sodium 50 ml @ 100 mls/hr DAILY@09 IV 10/03/24 09:00 10/03/24 08:14 Azithromycin 250 ml @ 125 mls/hr DAILY IV 10/03/24 10:00 10/03/24 11:06 Famotidine (Pepcid Injection) 20 mg DAILY IV 10/03/24 10:00 10/03/24 11:06 Budesonide (Pulmicort) 0.5 mg BID NEB 10/02/24 22:00 10/03/24 19:00 Methylprednisolone Sodium Succinate (Solu Medrol) 125 mg Q8HR IV 10/03/24 22:00 Enoxaparin Sodium (Lovenox) 40 mg DAILY SC 10/04/24 10:00 UNV Vital Signs Vital Signs Date Time Temp Pulse Resp B/P (MAP) Pulse Ox O2 Delivery O2 Flow Rate FiO2 10/03/24 21:00 98.0 117 20 123/70 (87) 91 98.0 10/03/24 19:00 Nasal Cannula 3.0 10/03/24 19:00 32 Physical Exam Gen.: Patient lying in bed in no apparent distress. On supplemental oxygen. Head: Normocephalic, atraumatic. Eyes: EOMI/PERRLA. Ears: Normal hearing. Normal anatomy. Neck/trachea: Trachea midline, supple. Nose: Normal external anatomy. Mouth: Moist mucous membranes. Chest: Decreased air entry bilaterally. No wheezing or rhonchi. Cardiovascular: Positive S1, positive S2. Regular rate and rhythm. Abdomen: Positive bowel sounds in all 4 quadrants. Soft, non-tender, non- distended. : Deferred. Rectal: Deferred. Skin: Warm, dry. Intact. Extremities: 2+ radial pulses bilaterally. No lower extremity edema. Neuro: Awake, alert, oriented x3. No gross motor or sensory deficits. Cranial nerves II through XII intact. Gait not assessed. Labs/Diagnostic Data Labs Test 10/03/24 16:58 10/03/24 05:45 10/02/24 09:00 10/02/24 02:57 Range/Units POC Glucose 121 H 70-106 mg/dl White Blood Count 6.7 # 4.4-10.8 10^3/uL Red Blood Count 3.22 L 4.5-5.90 10^6/uL Hemoglobin 11.7 L 13.5-17.5 g/dL Hematocrit 33.8 #L 41.0-53.0 % Mean Corpuscular Volume 104.7 H 80.0-100.0 fL Mean Corpuscular Hemoglobin 36.2 H 28.0-32.0 pg Mean Corpuscular Hemoglobin Concent 34.5 32.0-36.0 g/dL Red Cell Distribution Width 13.7 11.8-14.3 % Platelet Count 161 140-450 10^3/uL Mean Platelet Volume 7.1 6.9-10.8 fL Neutrophils (%) (Auto) 89.2 H 37.0-80.0 % Lymphocytes (%) (Auto) 9.1 L 10.0-50.0 % Monocytes (%) (Auto) 1.7 0.0-12.0 % Eosinophils (%) (Auto) 0.0 0.0-7.0 % Basophils (%) (Auto) 0.0 0.0-2.0 % Neutrophils # (Auto) 6.0 1.6-8.6 10 ^3/uL Lymphocytes # (Auto) 0.6 0.4-5.4 10 ^3/uL Monocytes # (Auto) 0.1 0-1.3 10 ^3/uL Eosinophils # (Auto) 0 0-0.8 10 ^3/uL Basophils # (Auto) 0 0-0.2 10 ^3/uL Nucleated Red Blood Cells 0.1 % Sodium Level 136 136-145 mmol/L Potassium Level 4.2 3.5-5.1 mmol/L Chloride Level 105 98-107 mmol/L Carbon Dioxide Level 26 20-31 mmol/L Anion Gap 5 5-15 Blood Urea Nitrogen 7 L 9-23 mg/dL Creatinine 0.46 L 0.700-1.30 mg/dL Glomerular Filtration Rate Calc 102 >90 mL/min BUN/Creatinine Ratio 15.2 10.0-20.0 Serum Glucose 135 H 74-106 mg/dL Calcium Level 7.8 L 8.7-10.4 mg/dL Total Bilirubin 0.9 0.2-1.0 mg/dL Aspartate Amino Transferase (AST) 35 13-40 U/L Alanine Aminotransferase (ALT) 22 7-40 U/L Alkaline Phosphatase 138 H 46-116 U/L Total Protein 6.1 5.7-8.2 g/dL Albumin 2.1 L 3.2-4.8 g/dL Urine Color Light-yellow Yellow Urine Clarity Clear Clear Urine pH 6.5 5.0-9.0 Urine Specific [place] 1.025 1.001-1.035 Urine Protein Negative Negative Urine Ketones Negative Negative Urine Blood Negative Negative /uL Urine Nitrite Negative Negative Urine Bilirubin Negative Negative Urine Urobilinogen 2 H Negative mg/dL Urine Leukocyte Esterase Negative Negative /uL Urine RBC 1 0 - 3 /hpf Urine Microscopic WBC 1 0-3 /HPF Urine Squamous Epithelial Cells None seen <5 /hpf Urine Bacteria None seen None Seen /hpf Urine Glucose Normal Normal mg/dL Lactic Acid Level 1.7 0.4-2.0 mmol/L Test 10/02/24 01:46 10/02/24 00:55 10/02/24 00:51 10/02/24 00:50 Range/Units Troponin I High Sensitivity < 3 L </=54 ng/L Influenza Type A Antigen Negative Negative Influenza Type B Antigen Negative Negative SARS-CoV-2 Antigen (Rapid) Negative NEGATIVE Blood Gas Specimen Type Arterial Blood Gas Sample Site Right radial Blood Gas Patient Temperature 37.0 Arterial Blood Date Drawn [id number] Arterial Blood pH 7.441 7.350-7.450 Arterial Blood Partial Pressure CO2 36.2 35.0-48.0 mmHg Arterial Blood Partial Pressure O2 84.2 83.0-108.0 mmHg Arterial Blood HCO3 24.1 21.0-28.0 mmol/L Arterial Blood Oxygen Saturation 96.4 94.0-98.0 % Arterial Blood Base Excess 0.3 -2.0-3.0 mmol/L Arterial Blood Oxyhemoglobin 94.8 94.0-98.0 % Arterial Blood Carboxyhemoglobin 1.3 0.5-1.5 % Arterial Blood Methemoglobin 0.4 0.0-1.5 % Phu Test Modified Blood Gas Total Hemoglobin 13.30 L 13.5-17.5 g/dL Blood Gas Liter Flow 4.00 Blood Gas Modality Nasal cannula FiO2 % 36.0 D-Dimer, Quantitative 8.75 H 0.0-0.49 mg/L FEU Hemoglobin A1c 4.3 <5.7 % A1C B-Type Natriuretic Peptide 73.52 0-100 pg/mL Microbiology Date/Time Source Procedure Growth Status 10/02/24 03:17 Blood Blood Culture - Preliminary NO GROWTH AFTER 24 HOURS OF INCUBATION. Resulted Assessment Impression: Acute hypoxic respiratory failure Dependence on supplemental oxygen Pulmonary fibrosis Bilateral pleural effusions Atelectasis Emphysema Ascites Cirrhosis Elevated D-dimer. PE ruled out. Hx of nicotine dependence Plan: Supplemental oxygen 3 LPM NC Titrate to keep O2 sats above 92%. CTA reviewed; no e/o pulmonary embolism. Ascending thoracic aorta is ectatic measuring 4.5 cm in maximum diameter. 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 COPD with scattered areas of ground-glass attenuation, partial consolidation and bilateral pleural effusions. Superimposed pneumonia cannot be excluded. CXR demonstrates low lung volumes with bronchovascular crowding. No pleural effusion or pneumothorax. Continue bronchodilators. IV steroids - taper frequency to Solu-Medrol 125 mg q.8 hours. Continue antibiotics Incentive spirometry IV fluids with NS at 100 ml/hr. Monitor renal function. Monitor electrolytes. Supplement as necessary. Monitor ins and outs. DVT prophylaxis. Poor prognosis Patient is DNR/DNI. Prognosis: Poor given patient's multiple co-morbidities. Rest of plan per hospitalist and other consultants. Thank you, FRANKLYN Powers, for allowing me to participate in this patient's care. Further recommendations will depend on the patient's clinical course. Please do not hesitate to contact me if you have any questions or concerns. This medical document was created using an electronic medical record system with [employer] dictation system. Although these documentations are being carefully reviewed, there may still be some phonetic and typographical changes. The errors are purely typographical, due to imperfection on the software program, and do not reflect any compromise in the patient's medical care. Plan discussed with: Patient, Other (RN/COAL TRIMMER MACHINE OPERATOR Gio/) COLLINS CASTELLANOS MD Oct 03, 2024 22:26
[2024-10-04] VITALS (18 sets, daily range): BP systolic 105–145; BP diastolic 55–87; PULSE 90–125; RESP 16–22; TEMP 97.4–98.3; O2SAT 90–100
[2024-10-04 07:05] LABS: Basophils # (auto) 0 10 ^3/uL (0-0.2); Eosinophils # (auto) 0 10 ^3/uL (0-0.8); Hemoglobin 10.6 g/dL (13.5-17.5); Lymphocytes # (auto) 0.7 10 ^3/uL (0.4-5.4); Monocytes # (auto) 0.5 10 ^3/uL (0-1.3); Platelet Count (auto) 155 10^3/uL (140-450)
[2024-10-04 07:07] LABS: Basophils % (auto) 0.2 % (0.0-2.0); Hematocrit 30.7 % (41.0-53.0); Lymphocytes % (auto) 5.1 % (10.0-50.0); Mean Corpuscular Hemoglobin 35.9 pg (28.0-32.0); Mean Corpuscular Hgb Conc. 34.6 g/dL (32.0-36.0); Mean Corpuscular Volume 103.7 fL (80.0-100.0); Monocytes % (auto) 3.6 % (0.0-12.0); Neutrophils # (auto) 13.5 10 ^3/uL (1.6-8.6); Neutrophils % (auto) 91.1 % (37.0-80.0); Red Blood Cells 2.96 10^6/uL (4.5-5.90); Red Cell Distribution Width 13.6 % (11.8-14.3); White Blood Cell 14.8 10^3/uL (4.4-10.8)
[2024-10-04 07:27] LABS: Anion Gap 5 (5-15); Carbon Dioxide 27 mmol/L (20-31); Chloride 106 mmol/L (98-107); Sodium 138 mmol/L (136-145)
[2024-10-04 07:32] LABS: Calcium 7.6 mg/dL (8.7-10.4)
[2024-10-04 07:33] LABS: BUN/Creatinine Ratio 18.2 (10.0-20.0); Blood Urea Nitrogen 10 mg/dL (9-23)
[2024-10-04 07:34] LABS: Glucose 124 mg/dL (74-106)
[2024-10-04] MEDS: ENOXAPARIN SOD 40 MG/0.4 ML SYRINGE SC SCH (08:50)
--- NOTE | 2024-10-04 15:59 | DVHPN2 ---
Subjective Patient was states no improvement in his breathing since yesterday. Reviewed: Care Plan, H&P, Labs, Medications Changes from previous H/P or p: No Changes General: Per HPI Respiratory: Shortness of breath Objective Vitals Vital Signs Date Time Temp Pulse Resp B/P (MAP) Pulse Ox O2 Delivery O2 Flow Rate FiO2 10/04/24 14:46 107 20 100 10/04/24 14:40 Nasal Cannula* 2 28 10/04/24 13:00 97.4 107/55 (72) 97.4 Intake/Output Intake and Output 10/04/24 07:00 Intake Total 3440 ml Output Total 900 ml Balance 2540 ml Intake Oral 1140 ml IV Total 2300 ml Output Urine Total 900 ml General Appearance: Alert, Oriented X3, Cooperative, No acute distress, mild distress HEENT: Atraumatic, PERRLA Lungs: Clear to auscultation, Normal air movement Cardiovascular: Normal S1, Normal S2 Abdomen: Normal bowel sounds, Soft, No tenderness, No hepatospenomegaly Musculoskeletal: Normal sensory function, Normal motor function Neuro: Normal speech Skin: Dry, Intact Psych/Mental Status: Mental status NL, Mood NL Medications Current Medications Medications Dose Ordered Sig/Lizz Route Start Time Stop Time Status Last Admin Dose Admin Ceftriaxone Sodium 50 ml @ 100 mls/hr DAILY@09 IV 10/03/24 09:00 10/04/24 08:49 100 MLS/HR Azithromycin 250 ml @ 125 mls/hr DAILY IV 10/03/24 10:00 10/04/24 08:49 125 MLS/HR Acetaminophen/ Hydrocodone Bitart 1 tab Q4HP PRN PO 10/02/24 12:00 Ondansetron HCl 4 mg Q4HP PRN IV 10/02/24 12:00 Acetaminophen 650 mg Q6HP PRN PO 10/02/24 12:00 Diagnostic Test (Pha) 1 strip ACHS 10/02/24 17:00 10/04/24 11:50 1 STRIP Insulin Human Regular ACHS SC 10/02/24 17:00 10/04/24 11:51 2 UNITS Dextrose 50 ml UD PRN IV 10/02/24 12:00 Albuterol 2.5 mg Q4HWA NEB 10/02/24 14:00 10/04/24 14:40 2.5 MG Albuterol 2.5 mg Q2HPRN PRN NEB 10/02/24 12:00 Ipratropium [place] 0.5 mg Q4HWA NEB 10/02/24 14:00 10/04/24 14:40 0.5 MG Ipratropium [place] 0.5 mg Q2HPRN PRN NEB 10/02/24 12:00 Methylprednisolone Sodium Succinate 40 mg Q8HR IV 10/02/24 14:00 UNV Famotidine 20 mg DAILY IV 10/03/24 10:00 10/04/24 08:49 20 MG Budesonide 0.5 mg BID NEB 10/02/24 22:00 10/04/24 07:07 0.5 MG Sodium Chloride 1,000 ml @ 100 mls/hr Q10H IV 10/02/24 13:00 10/04/24 05:12 100 MLS/HR Methylprednisolone Sodium Succinate 125 mg Q8HR IV 10/03/24 22:00 10/04/24 13:58 125 MG Enoxaparin Sodium 40 mg DAILY SC 10/04/24 10:00 10/04/24 08:50 40 MG Laboratory Results Laboratory Tests 10/04/24 05:32 Chemistry Test 10/04/24 05:32 Calcium Level 7.6 mg/dL (8.7-10.4) L Urinalysis Test 10/02/24 09:00 Urine Color Light-yellow (Yellow) Urine Clarity Clear (Clear) Urine pH 6.5 (5.0-9.0) Urine Specific [place] 1.025 (1.001-1.035) Urine Protein Negative (Negative) Urine Ketones Negative (Negative) Urine Blood Negative /uL (Negative) Urine Nitrite Negative (Negative) Urine Bilirubin Negative (Negative) Urine Urobilinogen 2 mg/dL (Negative) H Urine Leukocyte Esterase Negative /uL (Negative) Urine RBC 1 /hpf (0 - 3) Urine Microscopic WBC 1 /HPF (0-3) Urine Squamous Epithelial Cells None seen /hpf (<5) Urine Bacteria None seen /hpf (None Seen) Urine Glucose Normal mg/dL (Normal) Microbiology Microbiology Date/Time Source Procedure Growth Status 10/02/24 03:17 Blood Blood Culture - Preliminary NO GROWTH AFTER 48 HOURS OF INCUBATION. Resulted Labs and/or images reviewed: Labs reviewed by me, Image(s) reviewed by me Assessment/Plan Assessment/Plan Impression: -acute on chronic hypoxic respiratory failure -rule out community-acquired pneumonia, Gram-positive/Gram-negative etiology -pulmonary fibrosis/interstitial lung disease with flare -ascites -sepsis Plan: -patient continues to have severe dyspnea with moving. Unstable to transfer to [facility] -long discussion made with the patient was well as daughter regarding treatment plan. Patient was currently on maximum dose of steroids, q.4 bronchodilators with DuoNeb swallow as Pulmicort. -continue IV antibiotic therapy -CT angiogram of the chest reviewed. -repeat labs in a.m. -O2 supplementation to keep saturation greater than 92% Total time spent with patient discussing and formulating plan of care: 35 minutes. This medical document was created using an electronic medical record system with [employer] dictation system. Although this document has been carefully reviewed, there may still be some phonetic and typographical errors. These areas are purely typographical due to imperfections of the software programs, and do not reflect any compromise in the patient's medical care. Plan discussed with: Patient, Other (RN) My Orders Orders - LUCA HO NP Procedure Category Date Status Time Insert Midline ORDERS 10/04/24 Transmitted 11:03 Date of Service: Oct 04, 2024 Billing Provider: LUCA HO NP Common Visit Codes: [id number] INP/OBS CARE(HIGH) ( ) LUCA HO NP Oct 04, 2024 15:59
--- NOTE | 2024-10-04 16:13 | DVHPN2 ---
Progress Note - Dictate Date Seen: Oct 04, 2024 Medical Necessity Reason Pt with a Central, PICC or Fol: No Subjective patient seen and examined overnight events reviewed vital signs Vital Sign Date Time Temp Pulse Resp B/P (MAP) Pulse Ox O2 Delivery O2 Flow Rate FiO2 10/04/24 14:46 107 20 100 10/04/24 14:40 Nasal Cannula* 2 28 10/04/24 13:00 97.4 107/55 (72) 97.4 Total Intake and Output 10/03/24 10/03/24 10/04/24 15:00 23:00 07:00 Intake Total 540 ml 1500 ml 1400 ml Output Total 550 ml 350 ml Balance 540 ml 950 ml 1050 ml medications Current Medications Medications Dose Ordered Sig/Lizz Route Start Time Stop Time Status Last Admin Dose Admin Ceftriaxone Sodium 50 ml @ 100 mls/hr DAILY@09 IV 10/03/24 09:00 10/04/24 08:49 100 MLS/HR Azithromycin 250 ml @ 125 mls/hr DAILY IV 10/03/24 10:00 10/04/24 08:49 125 MLS/HR Acetaminophen/ Hydrocodone Bitart 1 tab Q4HP PRN PO 10/02/24 12:00 Ondansetron HCl 4 mg Q4HP PRN IV 10/02/24 12:00 Acetaminophen 650 mg Q6HP PRN PO 10/02/24 12:00 Diagnostic Test (Pha) 1 strip ACHS 10/02/24 17:00 10/04/24 11:50 1 STRIP Insulin Human Regular ACHS SC 10/02/24 17:00 10/04/24 11:51 2 UNITS Dextrose 50 ml UD PRN IV 10/02/24 12:00 Albuterol 2.5 mg Q4HWA NEB 10/02/24 14:00 10/04/24 14:40 2.5 MG Albuterol 2.5 mg Q2HPRN PRN NEB 10/02/24 12:00 Ipratropium [place] 0.5 mg Q4HWA NEB 10/02/24 14:00 10/04/24 14:40 0.5 MG Ipratropium [place] 0.5 mg Q2HPRN PRN NEB 10/02/24 12:00 Methylprednisolone Sodium Succinate 40 mg Q8HR IV 10/02/24 14:00 UNV Famotidine 20 mg DAILY IV 10/03/24 10:00 10/04/24 08:49 20 MG Budesonide 0.5 mg BID NEB 10/02/24 22:00 10/04/24 07:07 0.5 MG Sodium Chloride 1,000 ml @ 100 mls/hr Q10H IV 10/02/24 13:00 10/04/24 05:12 100 MLS/HR Methylprednisolone Sodium Succinate 125 mg Q8HR IV 10/03/24 22:00 10/04/24 13:58 125 MG Enoxaparin Sodium 40 mg DAILY SC 10/04/24 10:00 10/04/24 08:50 40 MG laboratory and microbiology Laboratory Tests 10/04/24 05:32 Test 10/04/24 05:32 Range/Units Serum Glucose 124 H 74-106 mg/dL Assessment/Plan Impression Acute hypoxemic respiratory failure Pleural effusions Pulmonary fibrosis Atelectasis Patient seen and examined Events Low oxygen requirements On 4 liters nasal cannula, at baseline No acute events Labs and imaging reviewed Management Supplemental oxygen Titrate to maintain sats 90% or above Incentive spirometry Continue antibiotics F/u cultures Bronchodilators Continue steroids Monitor renal function Monitor electrolytes Supplement as needed DVT prophylaxis Plan discussed with: Patient RENNY MENARD MD Oct 04, 2024 16:13
[2024-10-05] VITALS (19 sets, daily range): BP systolic 113–132; BP diastolic 75–84; PULSE 85–122; RESP 16–28; TEMP 97.5–98.6; O2SAT 90–99
[2024-10-05 07:55] LABS: Neutrophils # (auto) 12.4 10 ^3/uL (1.6-8.6); White Blood Cell 13.5 10^3/uL (4.4-10.8)
[2024-10-05 07:56] LABS: Basophils # (auto) 0 10 ^3/uL (0-0.2); Eosinophils # (auto) 0 10 ^3/uL (0-0.8); Hematocrit 34.2 % (41.0-53.0); Hemoglobin 11.5 g/dL (13.5-17.5); Lymphocytes # (auto) 0.5 10 ^3/uL (0.4-5.4)
[2024-10-05 07:58] LABS: Basophils % (auto) 0.2 % (0.0-2.0); Lymphocytes % (auto) 3.5 % (10.0-50.0); Mean Corpuscular Hemoglobin 35.3 pg (28.0-32.0); Mean Corpuscular Hgb Conc. 33.8 g/dL (32.0-36.0); Mean Corpuscular Volume 104.5 fL (80.0-100.0); Monocytes # (auto) 0.5 10 ^3/uL (0-1.3); Monocytes % (auto) 4.1 % (0.0-12.0); Neutrophils % (auto) 92.2 % (37.0-80.0); Nucleated Red Blood Cells % 0.1 %; Platelet Count (auto) 166 10^3/uL (140-450); Red Blood Cells 3.27 10^6/uL (4.5-5.90); Red Cell Distribution Width 14.3 % (11.8-14.3)
[2024-10-05 08:30] LABS: Anion Gap 5 (5-15); Carbon Dioxide 28 mmol/L (20-31); Potassium 4.3 mmol/L (3.5-5.1); Sodium 141 mmol/L (136-145)
[2024-10-05 08:33] LABS: Calcium 7.8 mg/dL (8.7-10.4); Chloride 108 mmol/L (98-107)
[2024-10-05 08:36] LABS: Glucose 109 mg/dL (74-106)
[2024-10-05 08:54] LABS: BUN/Creatinine Ratio 18.8 (10.0-20.0); Blood Urea Nitrogen 9 mg/dL (9-23)
--- NOTE | 2024-10-05 13:03 | DVHPN2 ---
Subjective Patient continues to report shortness of breath. Reviewed: Care Plan, H&P, Labs, Medications Changes from previous H/P or p: No Changes General: Per HPI Respiratory: Shortness of breath Objective Vitals Vital Signs Date Time Temp Pulse Resp B/P (MAP) Pulse Ox O2 Delivery O2 Flow Rate FiO2 10/05/24 10:56 111 18 99 10/05/24 10:50 Nasal Cannula 3.0 10/05/24 10:50 32 10/05/24 09:00 98.4 129/75 (93) 98.4 Intake/Output Intake and Output 10/05/24 07:00 Intake Total 2194 ml Output Total 925 ml Balance 1269 ml Intake Oral 894 ml IV Total 1300 ml Output Urine Total 925 ml General Appearance: Alert, Oriented X3, Cooperative, No acute distress, mild distress HEENT: Atraumatic, PERRLA Lungs: Clear to auscultation, Normal air movement Cardiovascular: Normal S1, Normal S2 Abdomen: Normal bowel sounds, Soft, No tenderness, No hepatospenomegaly Musculoskeletal: Normal sensory function, Normal motor function Extremities: Normal pulses, Other (Plus three pitting edema to bilateral lower extremities) Neuro: Normal speech, Cranial nerves 3-12 NL Skin: Dry, Intact Psych/Mental Status: Mental status NL, Mood NL Medications Current Medications Medications Dose Ordered Sig/Lizz Route Start Time Stop Time Status Last Admin Dose Admin Ceftriaxone Sodium 50 ml @ 100 mls/hr DAILY@09 IV 10/03/24 09:00 10/05/24 08:23 100 MLS/HR Azithromycin 250 ml @ 125 mls/hr DAILY IV 10/03/24 10:00 10/05/24 08:23 125 MLS/HR Acetaminophen/ Hydrocodone Bitart 1 tab Q4HP PRN PO 10/02/24 12:00 Ondansetron HCl 4 mg Q4HP PRN IV 10/02/24 12:00 Acetaminophen 650 mg Q6HP PRN PO 10/02/24 12:00 Diagnostic Test (Pha) 1 strip ACHS 10/02/24 17:00 10/05/24 11:37 1 STRIP Insulin Human Regular ACHS SC 10/02/24 17:00 10/04/24 11:51 2 UNITS Dextrose 50 ml UD PRN IV 10/02/24 12:00 Albuterol 2.5 mg Q4HWA NEB 10/02/24 14:00 10/05/24 10:50 2.5 MG Albuterol 2.5 mg Q2HPRN PRN NEB 10/02/24 12:00 Ipratropium [place] 0.5 mg Q4HWA [facility] 10/02/24 14:00 10/05/24 07:40 0.5 MG Ipratropium [place] 0.5 mg Q2HPRN PRN NEB 10/02/24 12:00 Methylprednisolone Sodium Succinate 40 mg Q8HR IV 10/02/24 14:00 UNV Famotidine 20 mg DAILY IV 10/03/24 10:00 10/05/24 08:23 20 MG Budesonide 0.5 mg BID NEB 10/02/24 22:00 10/05/24 10:50 0.5 MG Sodium Chloride 1,000 ml @ 100 mls/hr Q10H IV 10/02/24 13:00 10/05/24 00:38 100 MLS/HR Methylprednisolone Sodium Succinate 125 mg Q8HR IV 10/03/24 22:00 10/05/24 05:25 125 MG Enoxaparin Sodium 40 mg DAILY SC 10/04/24 10:00 10/05/24 08:24 40 MG Laboratory Results Laboratory Tests 10/05/24 07:09 Chemistry Test 10/05/24 07:09 Calcium Level 7.8 mg/dL (8.7-10.4) L Urinalysis Test 10/02/24 09:00 Urine Color Light-yellow (Yellow) Urine Clarity Clear (Clear) Urine pH 6.5 (5.0-9.0) Urine Specific [place] 1.025 (1.001-1.035) Urine Protein Negative (Negative) Urine Ketones Negative (Negative) Urine Blood Negative /uL (Negative) Urine Nitrite Negative (Negative) Urine Bilirubin Negative (Negative) Urine Urobilinogen 2 mg/dL (Negative) H Urine Leukocyte Esterase Negative /uL (Negative) Urine RBC 1 /hpf (0 - 3) Urine Microscopic WBC 1 /HPF (0-3) Urine Squamous Epithelial Cells None seen /hpf (<5) Urine Bacteria None seen /hpf (None Seen) Urine Glucose Normal mg/dL (Normal) Microbiology Microbiology Date/Time Source Procedure Growth Status 10/02/24 03:17 Blood Blood Culture - Preliminary NO GROWTH AFTER 72 HOURS OF INCUBATION. Resulted Labs and/or images reviewed: Labs reviewed by me, Image(s) reviewed by me Assessment/Plan Assessment/Plan Impression: -acute on chronic hypoxic respiratory failure -rule out community-acquired pneumonia, Gram-positive/Gram-negative etiology -pulmonary fibrosis/interstitial lung disease with flare -ascites -sepsis -rule out RV dysfunction Plan: Events: Patient has no real improvement despite current modalities. Now worsening bilateral lower extremity swelling. Long discussion was made with the patient as well as daughter who was bedside. Patient will continue DNR status. Daughter states that she will discuss with the patient was well as other family members regarding hospice. Given the patient may be discharged home on hospice, transfer to [facility] we will not occur. -continue current treatment with Solu-Medrol, Pulmicort, bronchodilators -echocardiogram -continue IV antibiotic therapy -CT angiogram of the chest reviewed. -repeat labs in a.m. -O2 supplementation to keep saturation greater than 92% Total time spent with patient discussing and formulating plan of care: 35 minutes. This medical document was created using an electronic medical record system with [employer] dictation system. Although this document has been carefully reviewed, there may still be some phonetic and typographical errors. These areas are purely typographical due to imperfections of the software programs, and do not reflect any compromise in the patient's medical care. Plan discussed with: Patient, Daughter, Other (RN) My Orders Orders - LUCA HO NP Procedure Category Date Status Time Echo 2d Mode Cardiac US 10/05/24 Logged DOP 11:59 Date of Service: Oct 05, 2024 Billing Provider: LUCA HO NP Common Visit Codes: [id number] INP/OBS CARE(HIGH) LUCA HO NP Oct 05, 2024 13:03
--- NOTE | 2024-10-05 13:26 | DVHPN2 ---
Progress Note - Dictate Date Seen: Oct 05, 2024 Medical Necessity Reason Pt with a Central, PICC or Fol: No Subjective patient seen and examined overnight events reviewed vital signs Vital Sign Date Time Temp Pulse Resp B/P (MAP) Pulse Ox O2 Delivery O2 Flow Rate FiO2 10/05/24 10:56 111 18 99 10/05/24 10:50 Nasal Cannula 3.0 10/05/24 10:50 32 10/05/24 09:00 98.4 129/75 (93) 98.4 Total Intake and Output 10/04/24 10/04/24 10/05/24 15:00 23:00 07:00 Intake Total 50 ml 944 ml 1200 ml Output Total 325 ml 600 ml Balance 50 ml 619 ml 600 ml medications Current Medications Medications Dose Ordered Sig/Lizz Route Start Time Stop Time Status Last Admin Dose Admin Ceftriaxone Sodium 50 ml @ 100 mls/hr DAILY@09 IV 10/03/24 09:00 10/05/24 08:23 100 MLS/HR Azithromycin 250 ml @ 125 mls/hr DAILY IV 10/03/24 10:00 10/05/24 08:23 125 MLS/HR Acetaminophen/ Hydrocodone Bitart 1 tab Q4HP PRN PO 10/02/24 12:00 Ondansetron HCl 4 mg Q4HP PRN IV 10/02/24 12:00 Acetaminophen 650 mg Q6HP PRN PO 10/02/24 12:00 Diagnostic Test (Pha) 1 strip ACHS 10/02/24 17:00 10/05/24 11:37 1 STRIP Insulin Human Regular ACHS SC 10/02/24 17:00 10/04/24 11:51 2 UNITS Dextrose 50 ml UD PRN IV 10/02/24 12:00 Albuterol 2.5 mg Q4HWA NEB 10/02/24 14:00 10/05/24 10:50 2.5 MG Albuterol 2.5 mg Q2HPRN PRN NEB 10/02/24 12:00 Ipratropium [place] 0.5 mg Q4HWA NEB 10/02/24 14:00 10/05/24 07:40 0.5 MG Ipratropium [place] 0.5 mg Q2HPRN PRN NEB 10/02/24 12:00 Methylprednisolone Sodium Succinate 40 mg Q8HR IV 10/02/24 14:00 UNV Famotidine 20 mg DAILY IV 10/03/24 10:00 10/05/24 08:23 20 MG Budesonide 0.5 mg BID NEB 10/02/24 22:00 10/05/24 10:50 0.5 MG Sodium Chloride 1,000 ml @ 100 mls/hr Q10H IV 10/02/24 13:00 10/05/24 00:38 100 MLS/HR Methylprednisolone Sodium Succinate 125 mg Q8HR IV 10/03/24 22:00 10/05/24 05:25 125 MG Enoxaparin Sodium 40 mg DAILY SC 10/04/24 10:00 10/05/24 08:24 40 MG laboratory and microbiology Laboratory Tests 10/05/24 07:09 Test 10/05/24 07:09 Range/Units Serum Glucose 109 H 74-106 mg/dL Assessment/Plan Impression Acute hypoxemic respiratory failure Pleural effusions Pulmonary fibrosis Atelectasis Patient seen and examined Events Low oxygen requirements On 4 liters nasal cannula, at baseline No acute events Labs and imaging reviewed Management Supplemental oxygen Titrate to maintain sats 90% or above Incentive spirometry Continue antibiotics F/u cultures Bronchodilators Continue steroids Monitor renal function Monitor electrolytes Supplement as needed DVT prophylaxis Plan discussed with: Other (rn) RENNY MENARD MD Oct 05, 2024 13:26
[2024-10-05] MEDS: FUROSEMIDE 40 MG/4 ML VIAL IV SCH (17:21)
--- NOTE | 2024-10-05 21:16 | DVHSR ---
APPROVED REPORT EXAM: Two-dimensional and M-mode echocardiogram with Doppler and color Doppler. Blood Pressure: 129/75 mmHg INDICATION ? RV failure RISK FACTORS Height: 5'7", Weight: 186 DIMENSIONS LVDd3.5 (3.8-5.7cm)LA (2D)3.4 (1.9-4.0cm)Aortic Root3.8 (2.0-3.7cm) LVDs2.3 (2.5-4.0cm)LA (MM) (1.9-4.0cm)Aortic Cusp Exc1.8 (1.5-2.0cm) EF (%) 60.0 (55-70%)Rt. Atrium3.4 (1.9-4.0cm)Asc. Aorta cm IVSd1.1 (0.7-1.1cm)RV (D)3.7 (1.8-2.4cm) PWd1.0 (0.7-1.1cm) Mitral Valve MitralMitral Stenosis E wave0.84m/sMV Mean GR.mmHg A wave1.13m/sMV Peak GR.mmHg E/A ratio0.72D MVAcm2 DECEL [id number] 1/2 [place] Aortic Valve Aortic ValveAortic Stenosis V11.02m/Sapna Mean GR.4mmHg V21.38m/Sapna Peak GR.8mmHg LVOT Diameter1.8 (1.8-2.4cm)Doppler AVA1.88cm2 Pulmonic Valve V20.94m/s Tricuspid Valve TR Velocity3.88m/s [id number] Other Information Technically limited study due to body habitus, patient lying on right side. 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
[2024-10-06] VITALS (10 sets, daily range): BP systolic 118–135; BP diastolic 70–75; PULSE 81–115; RESP 14–28; TEMP 97.3–97.7; O2SAT 92–100
[2024-10-06] MEDS ORDERED: PRE1T PO (14:20)
[2024-10-06] MEDS ORDERED: LEVO500T91 PO (14:20)
--- NOTE | 2024-10-06 14:23 | DVHDS2 ---
Discharge Summary Date of Admission Oct 02, 2024 at 11:59 Date of Discharge: Oct 06, 2024 Labs/Diagnostic Data: Laboratory Results Test 10/06/24 11:55 10/05/24 07:09 10/03/24 05:45 10/02/24 09:00 POC Glucose 124 mg/dl (70-106) White Blood Count 13.5 10^3/uL (4.4-10.8) Red Blood Count 3.27 10^6/uL (4.5-5.90) Hemoglobin 11.5 g/dL (13.5-17.5) Hematocrit 34.2 % (41.0-53.0) Mean Corpuscular Volume 104.5 fL (80.0-100.0) Mean Corpuscular Hemoglobin 35.3 pg (28.0-32.0) Mean Corpuscular Hemoglobin Concent 33.8 g/dL (32.0-36.0) Red Cell Distribution Width 14.3 % (11.8-14.3) Platelet Count 166 10^3/uL (140-450) Mean Platelet Volume 7.4 fL (6.9-10.8) Neutrophils (%) (Auto) 92.2 % (37.0-80.0) Lymphocytes (%) (Auto) 3.5 % (10.0-50.0) Monocytes (%) (Auto) 4.1 % (0.0-12.0) Eosinophils (%) (Auto) 0.0 % (0.0-7.0) Basophils (%) (Auto) 0.2 % (0.0-2.0) Neutrophils # (Auto) 12.4 10 ^3/uL (1.6-8.6) Lymphocytes # (Auto) 0.5 10 ^3/uL (0.4-5.4) Monocytes # (Auto) 0.5 10 ^3/uL (0-1.3) Eosinophils # (Auto) 0 10 ^3/uL (0-0.8) Basophils # (Auto) 0 10 ^3/uL (0-0.2) Nucleated Red Blood Cells 0.1 % Sodium Level 141 mmol/L (136-145) Potassium Level 4.3 mmol/L (3.5-5.1) Chloride Level 108 mmol/L (98-107) Carbon Dioxide Level 28 mmol/L (20-31) Anion Gap 5 (5-15) Blood Urea Nitrogen 9 mg/dL (9-23) Creatinine 0.48 mg/dL (0.700-1.30) Glomerular Filtration Rate Calc 101 mL/min (>90) BUN/Creatinine Ratio 18.8 (10.0-20.0) Serum Glucose 109 mg/dL (74-106) Calcium Level 7.8 mg/dL (8.7-10.4) Total Bilirubin 0.9 mg/dL (0.2-1.0) Aspartate Amino Transferase (AST) 35 U/L (13-40) Alanine Aminotransferase (ALT) 22 U/L (7-40) Alkaline Phosphatase 138 U/L (46-116) Total Protein 6.1 g/dL (5.7-8.2) Albumin 2.1 g/dL (3.2-4.8) Urine Color Light-yellow (Yellow) Urine Clarity Clear (Clear) Urine pH 6.5 (5.0-9.0) Urine Specific [place] 1.025 (1.001-1.035) Urine Protein Negative (Negative) Urine Ketones Negative (Negative) Urine Blood Negative /uL (Negative) Urine Nitrite Negative (Negative) Urine Bilirubin Negative (Negative) Urine Urobilinogen 2 mg/dL (Negative) Urine Leukocyte Esterase Negative /uL (Negative) Urine RBC 1 /hpf (0 - 3) Urine Microscopic WBC 1 /HPF (0-3) Urine Squamous Epithelial Cells None seen /hpf (<5) Urine Bacteria None seen /hpf (None Seen) Urine Glucose Normal mg/dL (Normal) Test 10/02/24 02:57 10/02/24 01:46 10/02/24 00:55 10/02/24 00:51 Lactic Acid Level 1.7 mmol/L (0.4-2.0) Troponin I High Sensitivity < 3 ng/L (</=54) Influenza Type A Antigen Negative (Negative) Influenza Type B Antigen Negative (Negative) SARS-CoV-2 Antigen (Rapid) Negative (NEGATIVE) Blood Gas Specimen Type Arterial Blood Gas Sample Site Right radial Blood Gas Patient Temperature 37.0 Arterial Blood Date Drawn [id number] Arterial Blood pH 7.441 (7.350-7.450) Arterial Blood Partial Pressure CO2 36.2 mmHg (35.0-48.0) Arterial Blood Partial Pressure O2 84.2 mmHg (83.0-108.0) Arterial Blood HCO3 24.1 mmol/L (21.0-28.0) Arterial Blood Oxygen Saturation 96.4 % (94.0-98.0) Arterial Blood Base Excess 0.3 mmol/L (-2.0-3.0) Arterial Blood Oxyhemoglobin 94.8 % (94.0-98.0) Arterial Blood Carboxyhemoglobin 1.3 % (0.5-1.5) Arterial Blood Methemoglobin 0.4 % (0.0-1.5) Phu Test Modified Blood Gas Total Hemoglobin 13.30 g/dL (13.5-17.5) Blood Gas Liter Flow 4.00 Blood Gas Modality Nasal cannula FiO2 % 36.0 Test 10/02/24 00:50 D-Dimer, Quantitative 8.75 mg/L FEU (0.0-0.49) Hemoglobin A1c 4.3 % A1C (<5.7) B-Type Natriuretic Peptide 73.52 pg/mL (0-100) Other Laboratory Tests 10/05/24 07:09 Brief Hx & Hospital Course: 88 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 Patient was last seen on 08/16 by pulm in [place]. Since may 2024 has lazaro ETJosé current functional status SOB at rest. Compliance with treatment until 2 weeks ago stopping inhalers. Started on IV ceft and azithro, stress dose steroid, albuterol budesonide and ipatropium. discussed with family, patient wisehd to be placed on hospice care. social service consult placed for hospice, patient will go with home hospice today continue levofloxacin for 7 days and prednisone 5 days. 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 Patient was counseled about treatment plan, medications, possible side effects, patientverbalized understanding. All questions were answered to the best of my ability. This discharge took greater then 30 minutes in planning, reviewing documentation, counseling the patient, and discussing with other team members." ASSESSMENT ASSESSMENT Assessment COPD exacerbation Date of Service: Oct 06, 2024 Billing Provider: KAYODE JONES MD Common Visit Codes: [id number] DISCH DAY >30min KAYODE JONES MD Oct 06, 2024 14:23
--- NOTE | 2024-10-06 23:11 | DVHPN2 ---
Progress Note - Dictate Date Seen: Oct 06, 2024 Medical Necessity Reason Pt with a Central, PICC or Fol: No Subjective Patient seen and examined at bedside. Remains on supplemental oxygen Overnight events reviewed. vital signs Vital Sign Date Time Temp Pulse Resp B/P (MAP) Pulse Ox O2 Delivery O2 Flow Rate FiO2 10/06/24 14:20 115 16 96 10/06/24 14:03 97.5 10/06/24 09:06 124/70 10/06/24 08:00 Nasal Cannula* 3 32 Total Intake and Output 10/05/24 10/05/24 10/06/24 15:00 23:00 07:00 Intake Total 740 ml 790 ml 500 ml Output Total 540 ml 580 ml Balance 740 ml 250 ml -80 ml medications Current Medications Medications Dose Ordered Sig/Lizz Route Start Time Stop Time Status Last Admin Dose Admin Methylprednisolone Sodium Succinate 40 mg Q8HR IV 10/02/24 14:00 UNV objective Gen.: Patient lying in bed in no apparent distress. On supplemental oxygen. Head: Normocephalic, atraumatic. Eyes: EOMI/PERRLA. Ears: Normal hearing. Normal anatomy. Neck/trachea: Trachea midline, supple. Nose: Normal external anatomy. Mouth: Moist mucous membranes. Chest: Decreased air entry bilaterally. No wheezing or rhonchi. Cardiovascular: Positive S1, positive S2. Regular rate and rhythm. Abdomen: Positive bowel sounds in all 4 quadrants. Soft, non-tender, non- distended. : Deferred. Rectal: Deferred. Skin: Warm, dry. Intact. Extremities: 2+ radial pulses bilaterally. No lower extremity edema. Neuro: Awake, alert, oriented x3. No gross motor or sensory deficits. Cranial nerves II through XII intact. Gait not assessed. laboratory and microbiology Laboratory Tests 10/05/24 07:09 Test 10/05/24 07:09 Range/Units Serum Glucose 109 H 74-106 mg/dL Assessment/Plan Impression: Acute hypoxic respiratory failure Dependence on supplemental oxygen Pulmonary fibrosis Bilateral pleural effusions Atelectasis Emphysema Ascites Cirrhosis Elevated D-dimer. PE ruled out. Hx of nicotine dependence Events: Remains on supplemental oxygen, 2 LPM NC Taper O2 as tolerated Improved oxygen requirements Continue bronchodilators, scheduled Tapered steroids Continue antibiotics Incentive spirometry Disposition - Hospice evaluation Labs and imaging reviewed. Rest of plan as noted below. Plan: Supplemental oxygen Titrate to keep O2 sats above 92%. Continue bronchodilators. Steroids - tapered Continue antibiotics Incentive spirometry IV fluids with NS at 100 ml/hr. Monitor renal function. Monitor electrolytes. Supplement as necessary. Monitor ins and outs. DVT prophylaxis. Poor prognosis Patient is DNR/DNI. Prognosis: Poor given patient's multiple co-morbidities. Rest of plan per hospitalist and other consultants. Thank you, FRANKLYN Powers, for allowing me to participate in this patient's care. Further recommendations will depend on the patient's clinical course. Please do not hesitate to contact me if you have any questions or concerns. This medical document was created using an electronic medical record system with [employer] dictation system. Although these documentations are being carefully reviewed, there may still be some phonetic and typographical changes. The errors are purely typographical, due to imperfection on the software program, and do not reflect any compromise in the patient's medical care. Dietary Evaluation Review Comments: 1) Initiate Glucerna bid d/t SOB and increased protein needs 2) Encourage optimal PO intake 3) F/u with pulmonology, cardiology, and hepatology 4) Continue to monitor I&O, labs, and skin integrity Expected Outcomes/Goals: 1) appetite and labs to improve 2) f/u in 3-5 days Plan discussed with: Patient, Other (BETTE Sera) COLLINS CASTELLANOS MD Oct 06, 2024 23:11
== END 2024-10-06 15:50 | disposition hospice, home (50) | DRG 871 ==
LOC: EDBD 23:36 → EDSEX 23:36 → ER 23:36 → OVERFLOW 10-02 11:59 → TELE-WESTW 10-02 16:30
PROVIDERS: ADMIT Student in an Organized Health Care Education/Training Program; ATTEND Student in an Organized Health Care Education/Training Program
DX: A41.50 Gram-negative sepsis, unspecified (principal); J15.69 Pneumonia due to other Gram-negative bacteria; J96.21 Acute and chronic respiratory failure with hypoxia; J69.0 Pneumonitis due to inhalation of food and vomit; J15.9 Unspecified bacterial pneumonia; J18.9 Pneumonia, unspecified organism; E87.20 Acidosis, unspecified; R18.8 Other ascites; J44.1 Chronic obstructive pulmonary disease with (acute) exacerbation; J90 Pleural effusion, not elsewhere classified; J98.11 Atelectasis; J44.0 Chronic obstructive pulmonary disease with (acute) lower respiratory infection; Z20.822 Contact with and (suspected) exposure to COVID-19; Z51.5 Encounter for palliative care; Z66 Do not resuscitate; R73.9 Hyperglycemia, unspecified; E86.0 Dehydration; I71.9 Aortic aneurysm of unspecified site, without rupture; K74.60 Unspecified cirrhosis of liver; I10 Essential (primary) hypertension; E78.5 Hyperlipidemia, unspecified; J43.9 Emphysema, unspecified; J84.10 Pulmonary fibrosis, unspecified; E83.119 Hemochromatosis, unspecified; Z87.891 Personal history of nicotine dependence; Z86.0100 Personal history of colon polyps, unspecified; Z82.3 Family history of stroke; Z80.1 Family history of malignant neoplasm of trachea, bronchus and lung; Z79.2 Long term (current) use of antibiotics; Z79.899 Other long term (current) drug therapy; Z99.81 Dependence on supplemental oxygen
CPT/HCPCS: 36415; 36600; 71045; 71275; 76705; 80048; 80053; 81001; 82805; 82962; 83036; 83605; 83880; 84484; 85025; 85379; 87040; 87426; 87804; 93005; 93306; 94640; G0378; J1815; J3490

== ENCOUNTER 2024-10-31 15:59 | Emergency (ER) | payer OTHER ==
[~2024-10-31] VITALS: Ht 175.3 cm; Wt 100.0 kg
[~2024-10-31 15:59] MED LIST: ALEN70TA74; ATOR10TA52; BISO5TAB44; LEVO500T91 PO; ONDA-188; PIRF801T; PRE1T PO; TAMS0.4C39; TERB250T86
--- NOTE | 2024-10-31 16:26 | ED.PDOC ---
History of Present Illness HPI Comments This patient is a pleasant but unhealthy and obese 89-year-old male who arrives the ED today via EMS due to complaints of significant shortness a breath and gasping for air as well as intermittent abdominal pain. Patient has a history of COPD as well as CHF per patient. Patient states the symptoms has been going on since yesterday. Patient denies any fever nausea or vomiting. Patient denies any chest pain. Patient was on 2 L of oxygen via nasal cannula at time of arrival. I was notified by nursing that family was brain a DNR designation. Chief Complaint: Shortness of Breath Time Seen by MD: 16:15 Primary Care Provider: UNKNOWN Reviewed Notes: Nurses Notes, Nuisance Animal Damage Control Agent Notes, Medications, Allergies Allergies: Coded Allergies: NO KNOWN ALLERGIES (Unverified , 10/02/24) Home Meds Active Scripts Prednisone (PREDNISONE) 1 Mg Tb, 4 TAB PO DAILY for 5 Days, #20 TAB 3 Refills Prov:KAYODE JONES MD 10/06/24 Levofloxacin Hemihydrate (LEVOFLOXACIN) 500 Mg Tab, 1 TAB PO DAILY for 7 Days, #7 TAB Prov:KAYODE JONES MD 10/06/24 Reported Medications Ondansetron HCl (Ondansetron Hydrochloride) 4 Mg Tab, 1 10/02/24 Bisoprolol Fumarate (Bisoprolol Fumarate) 5 Mg Tab 10/02/24 Pirfenidone Base (Pirfenidone) 801 Mg Tab 10/02/24 Terbinafine HCl (Terbinafine Hydrochloride) 250 Mg Tab, 1 DAILY 10/02/24 Alendronate Sodium (Alendronate Sodium) 70 Mg Tab, 1 10/02/24 Atorvastatin Calcium (ATORVASTATIN CALCIUM) 10 Mg Tab, 1 DAILY 10/02/24 Tamsulosin Hcl (Tamsulosin Hcl) 0.4 Mg Cap 10/02/24 Information Source: Patient, Emergency Med Personnel Mode of Arrival: EMS Severity: Moderate Timing: Hours Duration: Since onset, Hours Prehospital treatment: None Past Medical History PAST MEDICAL HISTORY: CHF, High Lipids, HTN Surgical History: Denies all surgeries Family History Family History: Reviewed,noncontributory to illness, Unknown Social History Smoker: Non-Smoker Alcohol: Denies ETOH Use Drugs: Denies Drug Use Lives In: Home Constitutional: reports: fatigue, weakness; denies: chills, diaphoresis, fever, malaise, sweats, others EENTM: denies: blurred vision, double vision, ear bleeding, ear discharge, ear drainage, ear pain, ear ringing, eye pain, eye redness, hearing loss, mouth pain, mouth swelling, nasal discharge, nose bleeding, nose congestion, nose pain, photophobia, tearing, throat pain, throat swelling, voice changes, others Respiratory: reports: cough, SOB at rest, shortness of breath; denies: hemoptysis, orthopnea, SOB with excertion, stridor, wheezing, others Cardiovascular: denies: chest pain, dizzy spells, diaphoresis, Dyspnea on exertion, edema, irregular heart beat, left arm pain, lightheadedness, palpitations, PND, syncope, others Gastrointestinal: reports: abdominal pain; denies: abdomen distended, blood streaked bowels, constipated, diarrhea, dysphagia, difficulty swallowing, hematemesis, melena, nausea, poor appetite, poor fluid intake, rectal bleeding, rectal pain, vomiting, others Genitourinary: denies: burning, dysuria, flank pain, frequency, hematuria, in continence, penile discharge, penile sore, pain, testicle pain, testicle swelling, urgency, others Neurological: denies: dizziness, fainting, headache, left sided numbness, left sided weakness, numbness, paresthesia, pre-existing deficit, right sided numbness, right sided weakness, seizure, speech problems, tingling, tremors, weakness, others Musculoskeletal: denies: back pain, gout, joint pain, joint swelling, muscle pain, muscle stiffness, neck pain, others Integumetry: denies: bruises, change in color, change in hair/nails, dryness, laceration, lesions, lumps, rash, wounds, others Allergic/Immunocompromised: denies: Difficulty Healing, Frequent Infections, Hives, Itching, others Hematologic/Lymphatic: denies: anemia, blood clots, easy bleeding, easy bruising, swollen glands, others Endocrine: denies: excessive hunger, excessive sweating, excessive thirst, excessive urination, flushing, intolerance to cold, intolerance to heat, unexplained weight gain, unexplained weight loss, others Psychiatric: denies: anxiety, bipolar disorder, depression, hopeless, panic disorder, schizophrenia, sleepless, suicidal, others All Other Systems: Reviewed and Negative Physical Exam General Appearance: Moderate Distress (Moderate distress due to shortness a breath concerns. Patient appears to be in poor overall health.), Obese HEENT: Normal ENT Inspection, Pharynx Normal, TMs Normal Neck: Full Range of Motion, Non-Tender, Normal, Normal Inspection Respiratory: Chest Non-Tender, Other (Patient displays patchy rhonchi and wheezing throughout bilateral global lung nobles. No definitive accessory muscle use.) Cardiovascular: No Edema, No JVD, No Murmur, No Gallop, Normal Peripheral Pulses, Regular Rate/Rhythm Breast Exam: Deferred Gastrointestinal: No Organomegaly, Non Tender, No Pulsatile Mass, Normal Bowel Sounds, Soft Genitalia: Deferred Pelvic: Deferred Rectal: Deferred Extremities: Normal capillary refill, Non-tender Musculoskeletal : Apperance: Normal Neurologic: Alert, No Sensory Deficits Cerebellar Function: Normal Reflexes: Normal Skin: Dry, Normal Color, Warm Lymphatic: No Adenopathy Was a procedure done? Was a procedure done?: No Differential Dx Considerations may include: CHF exacerbation, COPD exacerbation, ascites, sepsis, electrolyte abnormality, renal injury X-Ray, Labs, Meds, VS Vital Signs Date Time Temp Pulse Resp B/P (MAP) Pulse Ox O2 Delivery O2 Flow Rate FiO2 10/31/24 19:38 102 21 97 Nasal Cannula* 4 36 10/31/24 19:30 98.2 102 17 110/72 (85) 97 98.2 10/31/24 18:00 106 15 112/76 (88) 97 10/31/24 16:50 105 25 96 Nasal Cannula* 4 36 10/31/24 16:47 98.9 103 25 110/70 (83) 96 98.9 10/31/24 16:29 18 94 Nasal Cannula* 4 36 10/31/24 16:16 97.6 102 24 117/76 (90) 99 97.6 10/31/24 16:05 103 Lab Test 10/31/24 19:24 10/31/24 17:40 10/31/24 16:25 10/31/24 14:25 Range/Units Lactic Acid Level 2.9 *H 2.3 *H 0.4-2.0 mmol/L Troponin I High Sensitivity 6 7 8 </=54 ng/L White Blood Count 9.4 4.4-10.8 10^3/uL Red Blood Count 3.91 L 4.5-5.90 10^6/uL Hemoglobin 14.3 13.5-17.5 g/dL Hematocrit 40.3 L 41.0-53.0 % Mean Corpuscular Volume 103.0 H 80.0-100.0 fL Mean Corpuscular Hemoglobin 36.6 H 28.0-32.0 pg Mean Corpuscular Hemoglobin Concent 35.6 32.0-36.0 g/dL Red Cell Distribution Width 13.9 11.8-14.3 % Platelet Count 136 L 140-450 10^3/uL Mean Platelet Volume 7.0 6.9-10.8 fL Neutrophils (%) (Auto) 89.2 H 37.0-80.0 % Lymphocytes (%) (Auto) 4.4 L 10.0-50.0 % Monocytes (%) (Auto) 6.1 0.0-12.0 % Eosinophils (%) (Auto) 0.2 0.0-7.0 % Basophils (%) (Auto) 0.1 0.0-2.0 % Neutrophils # (Auto) 8.4 1.6-8.6 10 ^3/uL Lymphocytes # (Auto) 0.4 0.4-5.4 10 ^3/uL Monocytes # (Auto) 0.6 0-1.3 10 ^3/uL Eosinophils # (Auto) 0 0-0.8 10 ^3/uL Basophils # (Auto) 0 0-0.2 10 ^3/uL Nucleated Red Blood Cells 0.1 % Sodium Level 118 *L 136-145 mmol/L Potassium Level 5.1 3.5-5.1 mmol/L Chloride Level 85 L 98-107 mmol/L Carbon Dioxide Level 29 20-31 mmol/L Anion Gap 4 L 5-15 Blood Urea Nitrogen 15 9-23 mg/dL Creatinine 0.48 L 0.700-1.30 mg/dL Glomerular Filtration Rate Calc 100 >90 mL/min BUN/Creatinine Ratio 31.3 H 10.0-20.0 Serum Glucose 113 H 74-106 mg/dL Calcium Level 7.6 L 8.7-10.4 mg/dL Total Bilirubin 2.0 H 0.2-1.0 mg/dL Aspartate Amino Transferase (AST) 51 H 13-40 U/L Alanine Aminotransferase (ALT) 61 H 7-40 U/L Alkaline Phosphatase 201 H 46-116 U/L Total Protein 5.8 5.7-8.2 g/dL Albumin 2.3 L 3.2-4.8 g/dL Lipase 35 12-53 U/L B-Type Natriuretic Peptide 89.60 0-100 pg/mL Current Medications Medications (Trade) Dose Ordered Sig/Lizz Route Start Time Stop Time Status Last Admin Albuterol (Ventolin Medneb) 5 mg ONCE ONCE NEB 10/31/24 16:15 10/31/24 16:16 DC 10/31/24 16:28 Ipratropium [place] (Atrovent Medneb) 0.5 mg ONCE ONCE NEB 10/31/24 16:15 10/31/24 16:16 DC 10/31/24 16:28 Dexamethasone Sodium Phosphate 10 mg/Dextrose 51 ml @ 204 mls/hr ONCE ONCE IV 10/31/24 16:15 10/31/24 16:29 DC 10/31/24 18:17 Sodium Chloride 1,000 ml @ 200 mls/hr Q5H ONCE IV 10/31/24 17:30 10/31/24 22:29 10/31/24 17:42 X-Ray, Labs, Meds, VS Comment All studies performed in the ED were evaluated by me personally. Patient was significantly hyponatremic with a 118 reading. Laboratories also revealed an elevated bilirubin, transaminitis and elevated lactic acid. CT of abdomen pelvis and chest revealed a large abdominal pelvic ascites anasarca and bilateral pleural effusions suggesting 3rd spacing no cardiomegaly noted. Pulmonary vasculature was not well evaluated. Suggestions of pulmonary arterial of the hypertension as well as a fusiform aneurysm of the ascending aorta that is 3.8 cm in transverse evaluation. Additionally, patient had some diffuse bilateral interstitial opacities that may be chronic in nature or possibly indicative of an atypical pneumonia. Patient's daughter arrived after the patient has been brought into a room. Daughter states the patient currently is on hospice and does not want code intervention. Forms have been signed. Patient will require admission for paracentesis of the ascites conditions as well as continued evaluation. Patient is a [facility] patient and will be transfer. Discussed the patient presentation as well as laboratories and imaging studies with Dr. Tico Rea at [facility]. He agreed to accept the patient is a transfer. Authorization number [id number]. Time of 1ST Reevaluation: 20:24 Reevaluation 1ST: Improved Consultation: PCP Patient Education/Counseling: Diagnosis, Treatment, Prognosis Family Education/Counseling: Diagnosis, Treatment, No Family Present Departure 1 Departure Time of Disposition: 20:24 Impression: Primary Impression: Acute respiratory distress Additional Impressions: Hyponatremia Ascites Elevated bilirubin Transaminitis Elevated lactic acid level Disposition: 02 SHORT TERM HOSPITAL Condition: Fair Discharged With: Self, Relative Critical Care Note Critical Care Time?: No Stability Stability form required: No Heart Score Heart Score: Heart Score Response (Comments) Value History Slightly Suspicious 0 EKG Repolarization Disturb 1 Age >65 2 Risk Factors 1 or 2 risk factors 1 Troponin Normal limit 0 Total 4 I personally scribed for KYLE ACOSTA PAC ([email or web address]) on 10/31/24 at 16:26. Electronically submitted by Renzo Mar ([email or web address]). KYLE ACOSTA PAC Oct 31, 2024 16:26
[2024-10-31] MEDS: ALBUTEROL SULF 2.5 MG/0.5ML(0.5%) NEB SOLN NEB ONE (16:28)
[2024-10-31] MEDS: IPRATROPIUM BROM 0.5 MG/2.5ML INH SOL NEB ONE (16:28)
[2024-10-31 16:43] LABS: Basophils # (auto) 0 10 ^3/uL (0-0.2); Basophils % (auto) 0.1 % (0.0-2.0); Eosinophils # (auto) 0 10 ^3/uL (0-0.8); Lymphocytes # (auto) 0.4 10 ^3/uL (0.4-5.4); Monocytes # (auto) 0.6 10 ^3/uL (0-1.3); Neutrophils # (auto) 8.4 10 ^3/uL (1.6-8.6); White Blood Cell 9.4 10^3/uL (4.4-10.8)
[2024-10-31 16:44] LABS: Eosinophils % (auto) 0.2 % (0.0-7.0); Hematocrit 40.3 % (41.0-53.0); Hemoglobin 14.3 g/dL (13.5-17.5); Lymphocytes % (auto) 4.4 % (10.0-50.0); Mean Corpuscular Hemoglobin 36.6 pg (28.0-32.0); Mean Corpuscular Hgb Conc. 35.6 g/dL (32.0-36.0); Monocytes % (auto) 6.1 % (0.0-12.0); Neutrophils % (auto) 89.2 % (37.0-80.0); Nucleated Red Blood Cells % 0.1 %; Platelet Count (auto) 136 10^3/uL (140-450); Red Blood Cells 3.91 10^6/uL (4.5-5.90); Red Cell Distribution Width 13.9 % (11.8-14.3)
[2024-10-31 16:50] VITALS: PULSE 105; RESP 25; O2SAT 96
[2024-10-31 17:03] LABS: Anion Gap 4 (5-15); BUN/Creatinine Ratio 31.3 (10.0-20.0); Blood Urea Nitrogen 15 mg/dL (9-23); Carbon Dioxide 29 mmol/L (20-31); Lipase 35 U/L (12-53); Total Protein 5.8 g/dL (5.7-8.2)
[2024-10-31 17:04] LABS: Alanine Aminotransferase 61 U/L (7-40); Albumin 2.3 g/dL (3.2-4.8); Alkaline Phosphatase 201 U/L (46-116); Aspartate Aminotransferase 51 U/L (13-40); Calcium 7.6 mg/dL (8.7-10.4); Chloride 85 mmol/L (98-107); Glucose 113 mg/dL (74-106); Potassium 5.1 mmol/L (3.5-5.1)
[2024-10-31 17:06] LABS: Lactic Acid w/Reflex 2.3 mmol/L (0.4-2.0); Sodium 118 mmol/L (136-145)
--- NOTE | 2024-10-31 17:35 | DVH ---
Procedure: CT CHST AB PEL WO CON-NO IV/ORAL 10/31/2024 04:46 PM Indication: SHORTNESS OF BREATH; ABD DISTENSION Comparison Study: Chest CT scan dated 10/02/2024, abdominal ultrasound dated 10/03/2024 Technique: Axial images were obtained and reformatted in coronal and sagittal planes. All CT scans at this medical facility are performed using dose modulation techniques as appropriate to a performed e xam including the following: Automated exposure control was utilized; adjustment of the MA and/or KV according to patient size; and use of iterative reconstruction technique. CT Dose: CTDI volume is 22. 7 mGy. Dose-length product is 1625.05 mGy*cm FINDINGS: Moderate right and small left pleural effusions interval worsening. Diffuse bilateral interstitial op acities unchanged from prior exam. Traction bronchiectasis noted in the lower lung zones. The heart i s normal in size. Fusiform ascending aorta aneurysm, 3.8 cm in transverse. Atherosclerotic calcifica tion of the thoracic aorta noted. Coronary artery calcification. Prominent pulmonary arterial trunk reflecting underlying pulmonary arterial hypertension. Few mildly prominent mediastinal lymph nodes a re seen. Heterogeneous and diminutive thyroid gland containing a subcentimeter calcification in the r ight lobe. No pneumothorax. The thoracic spine and sternum are unremarkable. No rib fracture is ident ified. Large abdominopelvic ascites. Cirrhotic liver morphology. Spleen is normal in size. No pneumoperiton eum. Diffuse colonic diverticulosis without definite evidence of diverticulitis. Prostate is moderate ly enlarged. Diffuse atherosclerotic calcification of the abdominal aorta. Cholelithiasis with no ev idence of cholecystitis. No intrahepatic or extrahepatic ductal dilatation. Pancreas, adrenal glands and kidneys unremarkable. No hydronephrosis or hydroureter. Right renal vascular calcification noted . No evidence of bowel obstruction. Diffuse body wall edema noted. No acute osseous abnormality. Mul tilevel degenerative disc disease of the lumbar spine. IMPRESSION: 1. Large abdominopelvic ascites, anasarca and bilateral pleural effusions suggesting 3rd spacing. The re is no cardiomegaly. Pulmonary vasculature is not well evaluated. 2. Suggestion of pulmonary arterial hypertension. 3. Fusiform aneurysm of the ascending aorta, 3.8 cm in transverse.Stable 4. Diffuse bilateral interstitial opacities that may represent chronic interstitial lung disease or a typical pneumonia. Mild bilateral lower lung zone traction bronchiectasis. 5. Cholelithiasis. 6. Colonic diverticulosis.
[2024-10-31] MEDS: SODIUM CHLORIDE 0.9% 1,000 ML IV ONE ×2 (17:42→17:47)
[2024-10-31] MEDS: DexAMETHasone INJECTION 10 MG in D5W 5% 50 ML IV ONE (18:17)
--- NOTE | 2024-10-31 18:28 | ECG ---
[facility] Test Date: 2024-10-31 Test Time: 16:02:44 Pat Name: MAHNAZ JIMENEZ Department: ED Room: Gender: M [employer] Tooling Engineer: CHERELLE : [id number] Requested By: KYLE ACOSTA Order Number: [id number] Reading MD: Measurements Intervals [place] Rate: 103 P: -19 KS: 148 QRS: -16 QRSD: 74 T: 127 QT: 324 QTc: 424 Interpretive Statements Sinus tachycardia Borderline left axis deviation Borderline repolarization abnormality Please click the below link to view image of tracing.
[2024-10-31 19:38] VITALS: PULSE 102; RESP 21; O2SAT 97
[2024-10-31] MEDS: FUROSEMIDE 40 MG/4 ML VIAL IV ONE (20:22)
[2024-10-31 20:44] LABS: Urine Bacteria None Seen /hpf (None Seen)
[2024-10-31 20:53] LABS: Urine Blood Negative /uL (Negative); Urine Clarity Clear (Clear); Urine Color Light-Yellow (Yellow); Urine Protein, UAD Negative (Negative); Urine Specific Gravity 1.011 (1.001-1.035); Urine Squamous Epithelial Cell FEW /hpf (<5); Urine Urobilinogen Normal (Negative); Urine WBC 30 /HPF (0-3)
[2024-11-01 00:13] VITALS: BP 112/73; PULSE 95; RESP 17; TEMP 98.2; O2SAT 98
== END 2024-10-31 20:35 | disposition short-term general hospital (02) ==
LOC: EDBD 15:59 → ER 15:59
DX: R06.03 Acute respiratory distress (principal); E87.1 Hypo-osmolality and hyponatremia; R18.8 Other ascites; E80.7 Disorder of bilirubin metabolism, unspecified; R74.01 Elevation of levels of liver transaminase levels; I11.0 Hypertensive heart disease with heart failure; I50.9 Heart failure, unspecified; E78.5 Hyperlipidemia, unspecified; Z79.899 Other long term (current) drug therapy; Z79.52 Long term (current) use of systemic steroids
CPT/HCPCS: 36415; 71250; 74176; 80053; 81001; 83605; 83690; 83880; 84484; 85025; 93005; 94640; 96361; 96365; 99285; J1100; J7030; J7060